=== PATIENT | male | born 1930 | race Caucasian/White ===

== ENCOUNTER 2017-06-08 07:12 | Inpatient (IN) | payer MEDICARE ==
[~2017-06-08] VITALS: Ht 154.9 cm; Wt 58.7 kg
[2017-06-08] VITALS (18 sets, daily range): BP systolic 116–189; BP diastolic 53–84; PULSE 52–66; RESP 16–32; TEMP 97.6–98.5; O2SAT 83–100
--- NOTE | 2017-06-08 07:52 | RADRPT ---
EXAM DATE/TIME: 06/08/2017 07:29 [place] COMPARISON: No previous studies available for comparison. INDICATIONS : Short of Breath MEDICAL HISTORY : Cardiovascular disease. SURGICAL HISTORY : CABG. ENCOUNTER: Initial ACUITY: 1 day PAIN SCORE: 0/10 LOCATION: chest FINDINGS: A single portable frontal view the chest shows elevation of left hemidiaphragm. Left basilar atelecta sis. Right lung is clear. No effusions. Mild cardiomegaly with mild pulmonary vascular engorgement. M edian sternotomy wires noted. CONCLUSION: Elevation left hemidiaphragm with left basilar atelectasis. Cardiomegaly with mild pulmonary vascular engorgement. Trev Beauchamp Jr., MD on June 08, 2017 at 7:49 Board Certified Radiologist. This report was verified electronically.
[2017-06-08] MEDS ORDERED: ATOR40TA16 PO (07:54)
[2017-06-08] MEDS ORDERED: LOSA50TA PO (07:54)
[2017-06-08] MEDS ORDERED: SOTA80TA PO (07:54)
[2017-06-08] MEDS ORDERED: APIX5TAB PO (07:54)
[2017-06-08] MEDS ORDERED: FURO1TAB60 PO (07:54)
[2017-06-08] MEDS ORDERED: ASPI81CH6 CHEW (07:54)
[2017-06-08 07:57] LABS: AUTOMATED NEUTROPHIL # 10.6 TH/MM3 (1.8-7.7); BASOPHIL # 0.3 TH/MM3 (0-0.2); BASOPHIL % 2.1 % (0.0-2.0); EOSINOPHIL # 0.5 TH/MM3 (0-0.4); EOSINOPHIL % 3.6 % (0.0-4.0); HEMATOCRIT 41.5 % (39.0-51.0); HEMOGLOBIN 13.9 GM/DL (13.0-17.0); LYMPH % 8.3 % (9.0-44.0); LYMPHOCYTE # 1.1 TH/MM3 (1.0-4.8); MEAN CELL VOLUME 88.9 FL (80.0-100.0); MEAN CORPUSCULAR HEMOGLOBIN 29.8 PG (27.0-34.0); MEAN CORPUSCULAR HGB CONC 33.5 % (32.0-36.0); MEAN PLATELET VOLUME 8.7 FL (7.0-11.0); MONO % 7.2 % (0.0-8.0); NEUT % 78.8 % (16.0-70.0); PLATELET COUNT 188 TH/MM3 (150-450); RED BLOOD COUNT 4.67 MIL/MM3 (4.50-5.90); WHITE BLOOD COUNT 13.5 TH/MM3 (4.0-11.0)
--- NOTE | 2017-06-08 07:58 | PD ---
HPI Chief Complaint: Respiratory Symptoms Time Seen by Provider: 07:23 Travel History International Travel<30 days: No Contact w/Intl Traveler<30days: No Traveled to known affect area: No History of Present Illness HPI 86-year-old male with history of CAD, CABG, CHF, brought in by his daughter for evaluation of shortness of breath. Shortest breath started at around 3:00 AM and has been progressively worsening, is at rest, worse with exertion. Patient also reports orthopnea. He has had a cough productive of yellowish sputum for the past few days. He is unsure if he has had a fever. No hemoptysis. No history of DVT or PE. He is supposed to be on Lasix, however he takes it as needed for leg swelling. He denies chest pain. His slater apprentice is Dr. Dillard. [facility] Past Medical History Atrial Fibrillation: Yes Cancer: Yes (Colon, penile ) High Cholesterol: Yes Congestive Heart Failure: Yes Hypertension: Yes Myocardial Infarction: Yes Tetanus Vaccination: < 5 Years Influenza Vaccination: Yes Past Surgical History Abdominal Surgery: Yes (Partial colectomy R/T CA) Coronary Artery Bypass Graft: Yes Genitourinary Surgery: Yes (Cancer removed from penis ) Social History Alcohol Use: No Tobacco Use: No Substance Use: No Allergies-Medications (Allergen,Severity, Reaction): Coded Allergies: No Known Allergies (Unverified , 06/08/17) Reported Meds & Prescriptions Reported Meds & Active Scripts Active Reported Atorvastatin (Atorvastatin Calcium) 40 Mg Tab 40 Mg PO HS Eliquis (Apixaban) 5 Mg Tab 5 Mg PO BID Aspirin Low Dose (Aspirin) 81 Mg Chew 81 Mg CHEW DAILY Sotalol (Sotalol HCl) 80 Mg Tab 40 Mg PO BID Lasix (Furosemide) 40 Mg Tab 40 Mg PO DAILY PRN Losartan (Losartan Potassium) 50 Mg Tab 50 Mg PO DAILY Review of Systems Except as stated in HPI: all other systems reviewed are Neg Physical Exam Narrative GENERAL: Well-developed, well-nourished, moderate respiratory distress, speaking a few words at a time, labored breathing, tachypneic SKIN: Focused skin assessment warm/dry. No rash. HEAD: Atraumatic. Normocephalic. EYES: Pupils equal and round. No scleral icterus. No injection or drainage. ENT: No nasal bleeding or discharge. Mucous membranes pink and moist. NECK: Trachea midline. No JVD. CARDIOVASCULAR: Regular rate and rhythm. RESPIRATORY: Labored breathing, tachypnea, moderate respiratory distress, speaking a few words at a time, poor air movement bilaterally with bibasilar rales and slight end expiratory wheezes. GASTROINTESTINAL: Abdomen soft, non-tender, nondistended. MUSCULOSKELETAL: No obvious deformities. No clubbing. No cyanosis. No edema. NEUROLOGICAL: Awake and alert. No obvious cranial nerve deficits. Motor grossly within normal limits. Normal speech. PSYCHIATRIC: Appropriate mood and affect; insight and judgment normal. Data Data Last Documented VS Vital Signs Date Time Temp Pulse Resp B/P (MAP) Pulse Ox O2 Delivery O2 Flow Rate FiO2 06/08/17 08:15 56 22 167/68 (101) 97 BiPAP 30 06/08/17 07:45 2.00 06/08/17 07:45 97.6 Orders Orders Sepsis Workup Initiated (06/08/17 ) Complete Blood Count With Diff (06/08/17 07:23) Comprehensive Metabolic Panel (06/08/17 07:23) Prothrombin Time / Inr (Pt) (06/08/17 07:23) Lactic Acid Sepsis Protocol (06/08/17 07:23) Ckmb (Isoenzyme) Profile (06/08/17 07:23) Troponin I (06/08/17 07:23) Urinalysis - C+S If Indicated (06/08/17 07:23) Influenzae A/B Antigen (06/08/17 07:23) Blood Culture (06/08/17 07:23) Chest, Single Ap (06/08/17 07:23) Ecg Monitoring (06/08/17 07:23) Iv Access Insert/Monitor (06/08/17 07:23) Oximetry (06/08/17 07:23) Oxygen Administration (06/08/17 07:23) B-Type Natriuretic Peptide (06/08/17 07:23) Arterial Blood Gas (Abg) (06/08/17 ) Methylprednisolone So Succ Inj (Solumedr (06/08/17 08:00) Albuterol-Ipratropium Neb (Duoneb Neb) (06/08/17 08:00) Resp Bipap / Cpap Non Invas Vt (06/08/17 07:48) Electrocardiogram (06/08/17 ) Act Partial Throm Time (Ptt) (06/08/17 07:30) Furosemide Inj (Lasix Inj) (06/08/17 08:45) Labs Laboratory Tests Test 06/08/17 07:30 06/08/17 07:38 White Blood Count 13.5 TH/MM3 Red Blood Count 4.67 MIL/MM3 Hemoglobin 13.9 GM/DL Hematocrit 41.5 % Mean Corpuscular Volume 88.9 FL Mean Corpuscular Hemoglobin 29.8 PG Mean Corpuscular Hemoglobin Concent 33.5 % Red Cell Distribution Width 16.0 % Platelet Count 188 TH/MM3 Mean Platelet Volume 8.7 FL Neutrophils (%) (Auto) 78.8 % Lymphocytes (%) (Auto) 8.3 % Monocytes (%) (Auto) 7.2 % Eosinophils (%) (Auto) 3.6 % Basophils (%) (Auto) 2.1 % Neutrophils # (Auto) 10.6 TH/MM3 Lymphocytes # (Auto) 1.1 TH/MM3 Monocytes # (Auto) 1.0 TH/MM3 Eosinophils # (Auto) 0.5 TH/MM3 Basophils # (Auto) 0.3 TH/MM3 CBC Comment DIFF FINAL Differential Comment Prothrombin Time 10.5 SEC Prothromb Time International Ratio 1.0 RATIO Activated Partial Thromboplast Time 30.2 SEC Blood Urea Nitrogen 20 MG/DL Creatinine 1.30 MG/DL Random Glucose 113 MG/DL Total Protein 7.2 GM/DL Albumin 3.2 GM/DL Calcium Level 8.9 MG/DL Alkaline Phosphatase 110 U/L Aspartate Amino Transf (AST/SGOT) 17 U/L Alanine Aminotransferase (ALT/SGPT) 14 U/L Total Bilirubin 0.8 MG/DL Sodium Level 142 MEQ/L Potassium Level 4.3 MEQ/L Chloride Level 107 MEQ/L Carbon Dioxide Level 29.8 MEQ/L Anion Gap 5 MEQ/L Estimat Glomerular Filtration Rate 52 ML/MIN Lactic Acid Level 1.1 mmol/L Total Creatine Kinase 35 U/L Troponin I 0.02 NG/ML B-Type Natriuretic Peptide 1015 PG/ML Blood Gas Puncture Site LT RADIAL Blood Gas Patient Temperature 98.6 Blood Gas HCO3 28 mmol/L Blood Gas Base Excess 2.7 mmol/L Blood Gas Oxygen Saturation 95 % Arterial Blood pH 7.33 Arterial Blood Partial Pressure CO2 55 mmHG Arterial Blood Partial Pressure O2 103 mmHG Arterial Blood Oxygen Content 18.0 Vol % Arterial Blood Carboxyhemoglobin 1.6 % Arterial Blood Methemoglobin 0.9 % Blood Gas Hemoglobin 13.4 G/DL Oxygen Delivery Device NASAL CANNULA Blood Gas Liter Flow 2 L/M MDM Medical Decision Making Medical Screen Exam Complete: Yes Emergency Medical Condition: Yes Interpretation(s) EKG: Sinus, rate 63, indeterminate axis, RBBB, LAFB, no acute ischemic abnormality. Differential Diagnosis Pulmonary edema, CHF, pneumonia, reactive airway disease, pneumothorax, PE Narrative Course Initial vital signs show heart rate 66, blood pressure 189/77, pulse ox 83% on room air, 99% on 2 L nasal cannula, oral temp of 97.6F. ABG on 2 L nasal cannula: PH 7.33, PCO2 55, PO2 103. CBC: WBC 13.5, hemoglobin 13.9, hematocrit 41.5, platelets 188, neutrophils 79%. CMP is essentially unremarkable. Lactic acid is 1.1. BNP is 1050. Troponin is 0.02. Chest x-ray: CONCLUSION: Elevation left hemidiaphragm with left basilar atelectasis. Cardiomegaly with mild pulmonary vascular engorgement. Shortly after arrival to the emergency department, the patient was started on BiPAP and was provided 3 DuoNeb treatments and IV Solu-Medrol. His respiratory status significantly improved on BiPAP. Patient was also given 40 mEq of IV Lasix. While on BiPAP the patient's blood pressure improved to 169/76. He will be admitted for further treatment and evaluation of CHF exacerbation. Case discussed with hospitalist Dr. Khan who will admit the patient to her service to the ICU. Patient was made aware of all findings and plan for admission. Critical Care Narrative Aggregate critical care time was 35 minutes. Time to perform other separately billable procedures was not included in the critical care time. My time did not include minutes spent treating any other patients simultaneously or on activities that did not directly contribute to the patient's treatment. The services I provided to this patient were to treat and/or prevent clinically significant deterioration that could result in: , permanent disability, worsening clinical condition, respiratory failure I provided critical care services requiring my management, as noted below: Chart data review, documentation time, medication orders and management, vital sign assessments/reviewing monitor data, ordering and reviewing lab tests, ordering and interpreting/reviewing x-rays and diagnostic studies, care of the patient and discussion of the patient with the admitting physicians. Diagnosis Primary Impression: CHF exacerbation Qualified Codes: I50.9 - Heart failure, unspecified Additional Impressions: Respiratory distress Hypoxia Admitting Information Admitting Physician Requests: Admit Yasmany Yip MD Jun 08, 2017 07:58
[2017-06-08] MEDS ORDERED: methylPREDNISolone SOD SUCC 125 MG/2 ML VIAL IV PUSH ONE (08:00)
[2017-06-08 08:11] LABS: CHLORIDE 107 MEQ/L (98-107); SODIUM (NA) 142 MEQ/L (136-145)
[2017-06-08] MEDS: RESP: ALBUTEROL 2.5 MG/IPRATROPIUM 0.5 MG NEB (SCH) INH (08:11)
[2017-06-08 08:14] LABS: CALCIUM 8.9 MG/DL (8.5-10.1)
[2017-06-08 08:15] LABS: ALBUMIN 3.2 GM/DL (3.4-5.0); BICARBONATE 29.8 MEQ/L (21.0-32.0); BLOOD UREA NITROGEN 20 MG/DL (7-18); GLUCOSE,RANDOM 113 MG/DL (74-106)
[2017-06-08 08:17] LABS: PROTHROMBIN TIME - PATIENT 10.5 SEC (9.8-11.6)
[2017-06-08 08:18] LABS: ALT (GPT) 14 U/L (12-78); AST (GOT) 17 U/L (15-37); GLOMERULAR FILTRATION RATE 52 ML/MIN (>89)
[2017-06-08 08:19] LABS: TOTAL BILIRUBIN ADULT 0.8 MG/DL (0.2-1.0); TOTAL PROTEIN 7.2 GM/DL (6.4-8.2)
[2017-06-08 08:21] LABS: ALKALINE PHOSPHATASE 110 U/L (45-117)
[2017-06-08 08:23] LABS: TROPONIN I 0.02 NG/ML (0.02-0.05)
[2017-06-08] MEDS ORDERED: FUROSEMIDE 40 MG/4 ML VIAL IV PUSH ONE (08:45)
[2017-06-08] MEDS ORDERED: SODIUM CHLORIDE 0.9% FLUSH 10 ML FLUSH IV FLUSH PRN (09:00)
[2017-06-08] MEDS ORDERED: PILL SPLITTER OTHER PRN (09:15)
[2017-06-08 09:39] LABS: BILIRUBIN, URINE NEG (NEG); BLOOD, URINE NEG (NEG); GLUCOSE,URINE NEG (NEG); KETONE, URINE NEG (NEG); NITRITE,URINE NEG (NEG); URINE LEUKOCYTE ESTERASE NEG (NEG)
[2017-06-08 09:41] LABS: URINE COLOR YELLOW (YELLW/STRAW)
[2017-06-08 09:54] LABS: RBC, URINE 0-3 /hpf (0-3); SQUAMOUS EPITHELIAL CELL URINE 0-5 /hpf (0-5); WBC, URINE 0-2 /hpf (0-5)
[2017-06-08] MEDS: FUROSEMIDE 40 MG/4 ML VIAL IVP SCH ×2 (09:55→17:34)
[2017-06-08] MEDS: ASPIRIN 81 MG CHEW TAB CHEW SCH (09:58)
[2017-06-08] MEDS: APIXABAN 5 MG TABLET PO SCH ×2 (09:58→20:11)
[2017-06-08] MEDS: LOSARTAN 50 MG TAB PO SCH (09:58)
[2017-06-08] MEDS: SOTALOL HCL 80 MG TAB PO SCH ×2 (09:59→20:10)
[2017-06-08] MEDS: SODIUM CHLORIDE 0.9% FLUSH 10 ML FLUSH IV FLUSH SCH ×2 (09:59→20:12)
--- NOTE | 2017-06-08 14:21 | HHI.HP ---
[facility] Service [facility] Primary Care Physician Unknown Admission Diagnosis CHF exacerbation, respiratory distress, hypoxia Diagnoses: Chief Complaint: Respiratory failure Travel History International Travel<30 Days: No Contact w/Intl Traveler <30 Da: No Traveled to Known Affected Are: No History of Present Illness This patient is an 86-year-old gentleman with a history of coronary disease and congestive heart failure who reports increasing shortness of breath over the last 24 hours. It isn't worse with exertion and improved with rest. He has had some productive cough. He was quite hypoxemic on arrival in the emergency room and required BiPAP. On my evaluation patient is still on BiPAP reports he is breathing a bit better. He denies any chest pain or edema. He has not changed any of his medications. He recently saw his home aide with a "clean bill of health ". Patient at this time is recommended to be admitted to the hospital due to acute hypoxemic respiratory failure Review of Systems Constitutional: DENIES: Diaphoretic episodes, Fatigue, Fever, Weight gain, Weight loss, Chills, Dizziness, Change in appetite, Night Sweats Endocrine: DENIES: Heat/cold intolerance, Polydipsia, Polyuria, Polyphagia Eyes: DENIES: Blurred vision, Diplopia, Eye inflammation, Eye pain, Vision loss , Photosensitivity, Double Vision Ears, nose, mouth, throat: DENIES: Tinnitus, Hearing loss, Vertigo, Nasal discharge, Oral lesions, Throat pain, Hoarseness, Ear Pain, Running Nose, Epistaxis, Sinus Pain, Toothache, Odynophagia Respiratory: DENIES: Apneas, Cough, Snoring, Wheezing, Hemoptysis, Sputum production, Shortness of breath Cardiovascular: COMPLAINS OF: Chest pain, Dyspnea on Exertion, DENIES: Palpitations, Syncope, PND, Lower Extremity Edema, Orthopnea, Claudication Gastrointestinal: DENIES: Abdominal pain, Black stools, Bloody stools, Constipation, Diarrhea, Nausea, Vomiting, Difficulty Swallowing, Anorexia Genitourinary: DENIES: Sexual dysfunction, Urinary frequency, Urinary incontinence, Urgency, Hematuria, Dysuria, Nocturia, Penile Discharge, Testicular Pain, Testicular Swelling Musculoskeletal: DENIES: Joint pain, Muscle aches, Stiffness, Joint Swelling, Back pain, Neck pain Integumentary: DENIES: Abnormal pigmentation, Nail changes, Pruritus, Rash Hematologic/lymphatic: DENIES: Bruising, Lymphadenopathy Immunologic/allergic: DENIES: Eczema, Urticaria Psychiatric: DENIES: Anxiety, Confusion, Mood changes, Depression, Hallucinations, Agitation, Suicidal Ideation, Homicidal Ideation, Delusions Except as stated in HPI: all other systems reviewed are Neg Past Family Social History Past Medical History Coronary artery disease Cardiac heart failure Penile cancer Colon cancer Past Surgical History Penile cancer surgery Colon resection Reported Medications Reviewed in the EMR, also takes milk of magnesia and Colace Allergies: Coded Allergies: No Known Allergies (Unverified , 06/08/17) Active Ordered Medications Reviewed in the EMR Family History Father from, patient of diabetes Mother from multiple heart attacks Social History No current tobacco or alcohol dependency, quit tobacco 40 years ago Lives with his daughter and recently relocated from [place] Physical Exam Vital Signs Vital Signs Date Time Temp Pulse Resp B/P (MAP) Pulse Ox O2 Delivery O2 Flow Rate FiO2 06/08/17 13:50 06/08/17 13:30 52 20 175/74 (107) 98 BiPAP 30 06/08/17 12:00 98 BiPAP 30 06/08/17 12:00 20 98 BiPAP 30 06/08/17 11:30 55 22 145/59 (87) 98 BiPAP 30 06/08/17 10:30 58 20 155/56 (89) 98 BiPAP 30 06/08/17 09:00 56 22 171/84 (113) 98 BiPAP 30 06/08/17 09:00 22 BiPAP 30 06/08/17 08:15 56 22 167/68 (101) 97 BiPAP 30 06/08/17 08:15 97 BiPAP 30 06/08/17 08:11 100 35 06/08/17 08:00 100 BiPAP 75 06/08/17 07:45 99 Nasal Cannula 2.00 06/08/17 07:45 32 99 Nasal Cannula 2.00 06/08/17 07:45 99 Nasal Cannula 2.00 06/08/17 07:45 97.6 66 32 189/77 (114) 83 Physical Exam GENERAL: This is a well-nourished, well-developed patient, on bipap HEAD: Atraumatic. Normocephalic. No temporal or scalp tenderness. EYES: Pupils equal round and reactive. Extraocular motions intact. No scleral icterus. No injection or drainage. ENT: Nose without bleeding, purulent drainage or septal hematoma. Throat without erythema, tonsillar hypertrophy or exudate. Uvula midline. Airway patent. NECK: Trachea midline. No JVD or lymphadenopathy. Supple, nontender, no meningeal signs. CARDIOVASCULAR: Regular rate and rhythm without murmurs, gallops, or rubs. RESPIRATORY: bilat decreased air flow No wheezes, rales, or rhonchi. GASTROINTESTINAL: Abdomen soft, non-tender, nondistended. No hepato-splenomegaly , or palpable masses. No guarding. MUSCULOSKELETAL: Extremities without clubbing, cyanosis, or edema. No joint tenderness, effusion, or edema noted. No calf tenderness. Negative Homans sign bilaterally. NEUROLOGICAL: Awake and alert. Cranial nerves II through XII intact. Motor and sensory grossly within normal limits. Five out of 5 muscle strength in all muscle groups. Normal speech. Laboratory Laboratory Tests Test 06/08/17 07:30 06/08/17 07:38 06/08/17 09:26 White Blood Count 13.5 Red Blood Count 4.67 Hemoglobin 13.9 Hematocrit 41.5 Mean Corpuscular Volume 88.9 Mean Corpuscular Hemoglobin 29.8 Mean Corpuscular Hemoglobin Concent 33.5 Red Cell Distribution Width 16.0 Platelet Count 188 Mean Platelet Volume 8.7 Neutrophils (%) (Auto) 78.8 Lymphocytes (%) (Auto) 8.3 Monocytes (%) (Auto) 7.2 Eosinophils (%) (Auto) 3.6 Basophils (%) (Auto) 2.1 Neutrophils # (Auto) 10.6 Lymphocytes # (Auto) 1.1 Monocytes # (Auto) 1.0 Eosinophils # (Auto) 0.5 Basophils # (Auto) 0.3 CBC Comment DIFF FINAL Differential Comment Prothrombin Time 10.5 Prothromb Time International Ratio 1.0 Activated Partial Thromboplast Time 30.2 Blood Urea Nitrogen 20 Creatinine 1.30 Random Glucose 113 Total Protein 7.2 Albumin 3.2 Calcium Level 8.9 Alkaline Phosphatase 110 Aspartate Amino Transf (AST/SGOT) 17 Alanine Aminotransferase (ALT/SGPT) 14 Total Bilirubin 0.8 Sodium Level 142 Potassium Level 4.3 Chloride Level 107 Carbon Dioxide Level 29.8 Anion Gap 5 Estimat Glomerular Filtration Rate 52 Lactic Acid Level 1.1 Total Creatine Kinase 35 Troponin I 0.02 B-Type Natriuretic Peptide 1015 Blood Gas Puncture Site LT RADIAL Blood Gas Patient Temperature 98.6 Blood Gas HCO3 28 Blood Gas Base Excess 2.7 Blood Gas Oxygen Saturation 95 Arterial Blood pH 7.33 Arterial Blood Partial Pressure CO2 55 Arterial Blood Partial Pressure O2 103 Arterial Blood Oxygen Content 18.0 Arterial Blood Carboxyhemoglobin 1.6 Arterial Blood Methemoglobin 0.9 Blood Gas Hemoglobin 13.4 Oxygen Delivery Device NASAL CANNULA Blood Gas Liter Flow 2 Urine Color YELLOW Urine Turbidity CLEAR Urine pH 6.0 Urine Specific [place] 1.010 Urine Protein NEG Urine Glucose (UA) NEG Urine Ketones NEG Urine Occult Blood NEG Urine Nitrite NEG Urine Bilirubin NEG Urine Leukocyte Esterase NEG Urine RBC 0-3 Urine WBC 0-2 Urine Squamous Epithelial Cells 0-5 Urine Bacteria NONE Microscopic Urinalysis Comment CULT NOT INDICATED Date/Time Source Procedure Growth Status 06/08/17 07:35 Blood Peripheral Aerobic Blood Culture Pending Received 06/08/17 07:35 Blood Peripheral Anaerobic Blood Culture Pending Received 06/08/17 07:40 Nasal Washing Influenza Types A,B Antigen (BONNIE) - Final NEGATIVE FOR FLU A AND B ANTIGEN.... Complete Result Diagram: 06/08/1772906/08/17729 Imaging Last Impressions Chest X-Ray 06/08/17722 Signed Impressions: Service Date/Time: Thursday, June 08, 2017 07:29 - CONCLUSION: Elevation left hemidiaphragm with left basilar atelectasis. Cardiomegaly with mild pulmonary vascular engorgement. Trev Beauchamp Jr., MD Septic Shock Reassessment Septic shock perfusion: reassessment completed Caprini VTE Risk Assessment Caprini VTE Risk Assessment: Mod/High Risk (score >= 2) Caprini Risk Assessment Model Point Value = 1 Point Value = 2 Point Value = 3 Point Value = 5 Age 41-60 Minor surgery BMI > 25 kg/m2 Swollen legs Varicose veins or History of unexplained or recurrent spontaneous Oral contraceptives or hormone replacement Sepsis (< 1 month) Serious lung disease, including pneumonia (< 1 month) Abnormal pulmonary function Acute myocardial infarction Congestive heart failure (< 1 month) History of inflammatory bowel disease Medical patient at bed rest Age 61-74 Arthroscopic surgery Major open surgery (> 45 min) Laparoscopic surgery (> 45 min) Malignancy Confined to bed (> 72 hours) Immobilizing plaster cast Central venous access Age >= 75 History of VTE Family history of VTE Factor V Leiden Prothrombin [id number] Lupus anticoagulant Anticardiolipin antibodies Elevated serum homocysteine Heparin-induced thrombocytopenia Other congenital or acquired thrombophilia Stroke (< 1 month) Elective arthroplasty Hip, pelvis, or leg fracture Acute spinal cord injury (< 1 month) Prophylaxis Regimen Total Risk Factor Score Risk Level Prophylaxis Regimen 0-1 Low Early ambulation 2 Moderate Order ONE of the following: *Sequential Compression Device (SCD) *Heparin 5000 units SQ BID 3-4 Higher Order ONE of the following medications: *Heparin 5000 units SQ TID *Enoxaparin/Lovenox 40 mg SQ daily (WT < 150 kg, CrCl > 30 mL/min) *Enoxaparin/Lovenox 30 mg SQ daily (WT < 150 kg, CrCl > 10-29 mL/min) *Enoxaparin/Lovenox 30 mg SQ BID (WT < 150 kg, CrCl > 30 mL/min) AND/OR *Sequential Compression Device (SCD) 5 or more Highest Order ONE of the following medications: *Heparin 5000 units SQ TID (Preferred with Epidurals) *Enoxaparin/Lovenox 40 mg SQ daily (WT < 150 kg, CrCl > 30 mL/min) *Enoxaparin/Lovenox 30 mg SQ daily (WT < 150 kg, CrCl > 10-29 mL/min) *Enoxaparin/Lovenox 30 mg SQ BID (WT < 150 kg, CrCl > 30 mL/min) AND *Sequential Compression Device (SCD) Assessment and Plan Problem List: (1) CHF exacerbation ICD Code: I50.9 - Heart failure, unspecified Status: Acute Plan: Continue home medications including sotalol, losartan, lupus and atorvastatin Cardiology consult Continue with telemetry (2) Hypoxia ICD Code: R09.02 - Hypoxemia Status: Acute Plan: Patient with acute hypoxemic respiratory failure secondary to congestive heart failure exacerbation Continue with Lasix for diuresis Follow accurate ins and outs Continue patient's home losartan and Eliquis Continue BiPAP as needed and oxygen as needed Patient admitted to the ICU Code Status full code Discussed Condition With patients, er md Physician Certification 2 Midnight Certification Type: Admission for Inpatient Services Order for Inpatient Services The services are ordered in accordance with Medicare regulations or non- Medicare payer requirements, as applicable. In the case of services not specified as inpatient-only, they are appropriately provided as inpatient services in accordance with the 2-midnight benchmark. Estimated LOS (days): 3 3 days is the estimated time the patient will need to remain in the hospital, assuming treatment plan goals are met and no additional complications. Post-Hospital Plan: Home Problem Qualifiers (1) CHF exacerbation: Qualified Codes: I50.9 - Heart failure, unspecified Samia Khan MD Jun 08, 2017 14:21
[2017-06-08] MEDS ORDERED: LACTULOSE SYRUP 20 GM/30 ML CUP PO ONE (14:30)
[2017-06-08] MEDS ORDERED: RESP: ALBUTEROL 2.5 MG/IPRATROPIUM 0.5 MG NEB (PRN) NEB (14:30)
[2017-06-08] MEDS ORDERED: BISACODYL EC 5 MG TABEC PO ONE (14:30)
[2017-06-08] MEDS: ATORVASTATIN 40 MG TAB PO SCH (20:12)
--- NOTE | 2017-06-08 22:53 | EKG ---
Date Performed: 06/08/2017 Time Performed: 07:21:50 PTAGE: 86 years EKG: Sinus rhythm INDETERMINATE AXIS RIGHT BUNDLE BRANCH BLOCK AND POSSIBLE RIGHT VENTRICULAR HYPERTROPHY LEFT POSTERI OR FASCICULAR BLOCK ANTEROSEPTAL MYOCARDIAL INFARCTION ABNORMAL ECG INTERPRETATION BASED ON A DEFAULT AGE OF 40 YEARS NO PREVIOUS TRACING DOCTOR: Kellie Galicia Interpretating Date/Time 06/08/2017 22:48:42
[2017-06-09] VITALS (17 sets, daily range): BP systolic 108–178; BP diastolic 50–84; PULSE 52–75; RESP 12–26; TEMP 96.5–98.2; O2SAT 95–100
[2017-06-09 05:14] LABS: BICARBONATE 32.4 MEQ/L (21.0-32.0); CALCIUM 8.8 MG/DL (8.5-10.1)
[2017-06-09 05:18] LABS: CREATININE 1.3 MG/DL (0.60-1.30)
[2017-06-09] MEDS: LOSARTAN 50 MG TAB PO SCH (08:56)
[2017-06-09] MEDS: SOTALOL HCL 80 MG TAB PO SCH ×2 (08:56→21:26)
[2017-06-09] MEDS: ASPIRIN 81 MG CHEW TAB CHEW SCH (08:56)
[2017-06-09] MEDS: APIXABAN 5 MG TABLET PO SCH ×2 (08:56→21:26)
[2017-06-09] MEDS: SODIUM CHLORIDE 0.9% FLUSH 10 ML FLUSH IV FLUSH SCH ×2 (08:57→21:26)
[2017-06-09] MEDS: FUROSEMIDE 40 MG/4 ML VIAL IVP SCH ×2 (08:57→17:07)
[2017-06-09] MEDS ORDERED: INFLUENZA VIRUS VACCINE (QUADRIVALENT) 0.5 ML SYR IM ONE (09:00)
--- NOTE | 2017-06-09 09:16 | MB ---
cc: VICK REID DO DATE OF CONSULTATION 06/09/2017 REASON FOR CONSULTATION Shortness of breath. HISTORY OF PRESENT ILLNESS Fidel Monzon is an 86-year-old male who sees my partner Dr. Dillard in the office and presented to [facility] emergency room due to shortness of breath over the past 24 hours. He states that he was getting more short of breath with exertion which improved with rest. He has had somewhat of a productive cough bringing up mild feliz sputum. On arrival to the emergency room, he was hypoxic with a pulse ox of 83 and then was placed on BiPap and did well. He was also noted to have a blood pressure of 189/77. He has since been taken off BiPap and placed on 2 liters nasal cannula and doing well lying flat in the bed. Throughout the episodes, he denies any chest pain. He is somewhat unsure of his previous medical history. PAST MEDICAL HISTORY 1. Coronary artery disease with a history of GA. 2. Heart failure of unknown type. 3. Penile cancer 4. Colon cancer 5. Paroxysmal atrial fibrillation PAST SURGICAL HISTORY 1. Stent placed around two years ago and an unknown coronary artery while in [place] 2. History of CABG times unknown amount. 3. Penile cancer surgery 4. Colon resection ALLERGIES NO KNOWN DRUG ALLERGIES. MEDICATIONS 1. Eliquis 5 mg b.i.d. 2. Lipitor 40 mg every night 3. Sotalol a 40 mg b.i.d. 4. Losartan 50 mg daily 5. Aspirin 81 mg daily 6. Lasix 40 mg daily as needed for shortness of breath. FAMILY HISTORY Father from diabetes. Mother from multiple heart attacks. SOCIAL HISTORY Denies tobacco, alcohol or drug abuse. He quit tobacco around 40 years ago. He now lives with his daughter and recently relocated from [place]. REVIEW OF SYSTEMS 14-systems were reviewed including osteopathic pertinent positives and negatives as above, otherwise negative. PHYSICAL EXAMINATION VITAL SIGNS: Temperature 98.0, heart rate 62, blood pressure 113/50, respirations 16, pulse ox 95% on two liters. GENERAL: In general, the patient appears well in no acute distress, alert, awake and oriented x3. HEAD, EYES, EARS, NOSE, AND THROAT: Extraocular muscles intact. Mucous membranes moist. NECK: Supple. No JVD at 45 degrees. No carotid bruits heard bilaterally. Carotid upstroke is brisk in nature. HEART: Regular rate and rhythm. Positive first and second heart sounds with a 1/6 crescendo-decrescendo murmur to the right sternal border. LUNGS: Decreased breath sounds bilaterally, but no overt wheezes, rales or rhonchi. ABDOMEN: Soft, nontender, nondistended. No organomegaly noted. EXTREMITIES: Show no clubbing, cyanosis or edema. Femoral and distal pulses intact bilaterally. NEUROLOGIC: No focal deficits. SKIN: Warm, dry and intact. OSTEOPATHIC: No kyphoscoliosis, lordosis or paraspinal tender points. LABORATORY FINDINGS Hemoglobin 13.9, hematocrit 41.5, platelets 188. ABG pH 7.33/pCO2 55/O2 95/HCO3 28. Potassium 3.5, BUN 30, creatinine 1.3, troponin 0.02. BNP 1015. Electrocardiogram (June 08, 2017 at 0721) sinus rhythm, right bundle branch block with possible RVH, left posterior fascicular block, possible old anteroseptal myocardial infarction. IMPRESSIONS 1. Hypoxia most likely due to multiple factors. 2. Acute congestive heart failure exacerbation of unknown type. 3. Accelerated hypertension. 4. Possible COPD exacerbation. 5. Paroxysmal atrial fibrillation 6. History of coronary artery disease as above. RECOMMENDATIONS 1. Mr. Monzon presented with shortness of breath which may be due to his accelerated hypertension, although his ABG points to CO2 retention and not really significant hypoxia on 2 liters of oxygen. 2. His blood pressure is better controlled at this time. We will continue his current medications. 3. He has been diuresed well and appears mostly compensated. 4. We will check a 2-D echo to look at his overall left ventricular function, cardiac structure and possible valvopathies. 5. As far as his atrial fibrillation goes, his heart rate appears controlled. If his ejection fraction is noted to be low on echocardiogram, we may need to stop his sotalol and change him to other beta blockade. He will continue on Eliquis for anticoagulation for his atrial fibrillation. 6. Upon discharge, he can follow up with Dr. Dillard in the office. Thank you for allowing me to see Fidel Monzon. If there are any questions, please do not hesitate to call. Vick Reid DO VGP/DJL /8:20 AM /9:00 AM
[2017-06-09] MEDS ORDERED: POTASSIUM CHLORIDE 10 MEQ CONTROLLED RELEASE TAB PO ONE ×2 (13:00→13:45)
--- NOTE | 2017-06-09 13:37 | HHI.PR ---
Subjective Remarks patient seen and evaluated today in follow-up for COPD exacerbation and for constipation. Constipation is dramatically improved. Patient's breathing is dramatically improved as well. In fact he is on 2 L nasal cannula. Cardiology evaluation appreciated. Objective Vitals Vital Signs Date Time Temp Pulse Resp B/P (MAP) Pulse Ox O2 Delivery O2 Flow Rate FiO2 06/09/17 10:00 58 22 155/68 (97) 100 06/09/17 10:00 58 06/09/17 09:15 98 Nasal Cannula 2.00 06/09/17 09:00 64 26 161/74 (103) 97 06/09/17 08:00 68 06/09/17 08:00 89 Nasal Cannula 2.00 06/09/17 08:00 98.0 75 22 178/84 (115) 98 06/09/17 07:00 66 16 152/71 (98) 96 06/09/17 06:00 65 06/09/17 04:16 98.0 62 16 113/50 (71) 95 06/09/17 04:00 66 06/09/17 03:00 62 16 125/58 (80) 95 06/09/17 02:00 58 06/09/17 02:00 58 19 134/59 (84) 95 06/09/17 01:00 58 18 144/60 (88) 95 06/09/17 00:00 62 06/09/17 00:00 97.7 62 16 125/55 (78) 95 06/08/17 23:00 54 16 126/55 (78) 95 06/08/17 22:00 62 18 118/58 (78) 95 06/08/17 22:00 65 06/08/17 21:00 54 20 127/55 (79) 95 06/08/17 20:00 60 06/08/17 20:00 98.5 60 30 136/60 (85) 95 06/08/17 19:20 96 Nasal Cannula 2.00 06/08/17 19:00 62 19 116/53 (74) 95 06/08/17 18:00 62 06/08/17 17:00 52 19 146/67 (93) 93 06/08/17 16:00 52 06/08/17 16:00 97.9 52 20 143/61 (88) 95 06/08/17 15:00 54 20 152/82 (105) 96 06/08/17 14:10 64 06/08/17 14:10 97.6 64 20 167/81 (109) 97 06/08/17 13:50 I/O 06/08/17 06/08/17 06/08/17 06/09/17 06/09/17 06/09/17 07:00 15:00 23:00 07:00 15:00 23:00 Intake Total 600 ml 120 ml Output Total 600 ml 425 ml Balance -600 ml 175 ml 120 ml Intake Oral 600 ml 120 ml Output Urine Total 600 ml 425 ml # Voids 2 # Bowel Movements 2 3 2 Result Diagram: 06/08/17 0730 06/09/17 0423 Imaging Last Impressions Chest X-Ray 06/08/17722 Signed Impressions: Service Date/Time: Thursday, June 08, 2017 07:29 - CONCLUSION: Elevation left hemidiaphragm with left basilar atelectasis. Cardiomegaly with mild pulmonary vascular engorgement. Trev Beauchamp Jr., MD Objective Remarks GENERAL: This is a well-nourished, well-developed patient, in no apparent distress. CARDIOVASCULAR: Regular rate and rhythm without murmurs, gallops, or rubs. RESPIRATORY: Clear to auscultation. Breath sounds equal bilaterally. No wheezes , rales, or rhonchi. GASTROINTESTINAL: Abdomen soft, non-tender, nondistended. Normal active bowel sounds MUSCULOSKELETAL: Extremities without clubbing, cyanosis, or edema. NEURO: Alert & Oriented x4 to person, place, time, situation. Moves all ext x4 A/P Problem List: (1) CHF exacerbation ICD Code: I50.9 - Heart failure, unspecified Status: Acute Plan: Continue home medications including sotalol, losartan, Eliquis and atorvastatin Cardiology consult is appreciated Continue with telemetry Original chest x-ray on my review is consistent with cardio pulmonary edema (2) Hypoxia ICD Code: R09.02 - Hypoxemia Status: Acute Plan: Patient with acute hypoxemic respiratory failure secondary to congestive heart failure exacerbation Continue with Lasix for diuresis Follow accurate ins and outs Continue patient's home losartan and Eliquis Continue with oxygen by nasal cannula as needed Increase activity I am concerned about possible obstructive pathology underlying this CHF exacerbation. Patient's original CO2 on his blood gas was a bit elevated and will need to recheck this. He still somewhat hypoxemic although he appears to have diuresed quite adequately (1025 ml) Discharge Planning [facility] Problem Qualifiers (1) CHF exacerbation: Qualified Codes: I50.9 - Heart failure, unspecified Samia Khan MD Jun 09, 2017 13:37
[2017-06-09] MEDS: predniSONE 20 MG TAB PO SCH (17:07)
[2017-06-09] MEDS: RESP: ALBUTEROL 2.5 MG/IPRATROPIUM 0.5 MG NEB (SCH) NEB (19:24)
--- NOTE | 2017-06-09 20:14 | ECHRPT ---
Indication: chf CONCLUSIONS The left ventricular systolic function is severely reduced with an estimated ejection fraction in th e range of 30-35%. Global hypokinesis with apical akinesis. Riddle is not well visualized, can not rule out possible thrombus, although felt to be artifact. Doppler parameters are consistent with impaired left ventricular relaxtion (grade 1 diastolic dysfun ction). [id number] mitral valve regurgitation. There is mild tricuspid valve regurgitation. BP: / HR: Rhythm: MEASUREMENTS (Male / Female) Normal Values Technical Quality:Technically difficult study 2D ECHO LV Diastolic Diameter PLAX 4.7 cm 4.2 - 5.9 / 3.9 - 5.3 cm LV Systolic Diameter PLAX 4.1 cm IVS Diastolic Thickness 0.8 cm 0.6 - 1.0 / 0.6 - 0.9 cm LVPW Diastolic Thickness 0.9 cm 0.6 - 1.0 / 0.6 - 0.9 cm LV Relative Wall Thickness 0.4 RV Internal Dim ED PLAX 2.5 cm M-MODE Aortic Root Diameter MM 3.7 cm LA Systolic Diameter MM 4.0 cm LA Ao Ratio MM 1.1 DOPPLER Mitral E Point Velocity 57.3 cm/s Mitral A Point Velocity 79.0 cm/s Mitral E to A Ratio 0.7 LV E' Lateral Velocity 4.8 cm/s Mitral E to LV E' Lateral Ratio 12.0 LV E' Septal Velocity 5.6 cm/s Mitral E to LV E' Septal Ratio 10.3 TR Peak Velocity 200.0 cm/s TR Peak Gradient 16.0 mmHg Right Atrial Pressure 10.0 mmHg Pulmonary Artery Systolic Pressu 26.0 mmHg Right Ventricular Systolic Press 26.0 mmHg FINDINGS LEFT VENTRICLE Normal left ventricular size. The left ventricular systolic function is severely reduced with an estimated ejection fraction in th e range of 30-35%. Global hypokinesis with apical akinesis. Riddle is not well visualized, can not rule out possible thrombus, although felt to be artifact. Cons ider echo with contrast. Doppler parameters are consistent with impaired left ventricular relaxtion (grade 1 diastolic dysfun ction). RIGHT VENTRICLE Normal right ventricular size The right ventricular systoilc function is mildly decreased. LEFT ATRIUM The left atrial size is normal. RIGHT ATRIUM The right atrial size is normal. ATRIAL SEPTUM Normal atrial septal thickness AORTA The aortic root and proximal ascending aorta are normal in size on limited imaging. MITRAL VALVE Structurally normal mitral valve. [id number] mitral valve regurgitation. No mitral valve stenosis. AORTIC VALVE Trileaflet aortic valve. No aortic valve stenosis or regurgitation. TRICUSPID VALVE Structurally normal tricuspid valve. There is mild tricuspid valve regurgitation. The estimated pulmonary arterial pressure is 26 mmHg. PULMONARY VALVE No pulmonary valve regurgitation or stenosis. VESSELS The inferior vena cava is normal in size. PERICARDIUM No pericardial effusion. Vick Escobar DO (Electronically Signed) Final Date:09 June 2017 20:13
[2017-06-09] MEDS: ATORVASTATIN 40 MG TAB PO SCH (21:26)
[2017-06-10] VITALS: BP 120/67; PULSE 50; RESP 20; TEMP 96.7; O2SAT 99
--- NOTE | 2017-06-10 07:40 | PD.CARD.PN ---
Subjective Subjective Remarks Pt reports breathing a little better Objective Medications Current Medications Medications (Trade) Dose Ordered Sig/Phan Route Start Time Stop Time Status Last Admin (NS Flush) 2 ml BID IV FLUSH 06/08/17 09:00 06/09/17 21:26 (NS Flush) 2 ml UNSCH PRN IV FLUSH 06/08/17 09:00 06/09/17 17:07 (Lasix Inj) 40 mg BID@,18 IVP 06/08/17 10:00 06/09/17 17:07 (Eliquis) 5 mg BID PO 06/08/17 10:00 06/09/17 21:26 (Aspirin Chew) 81 mg DAILY CHEW 06/08/17 10:00 06/09/17 08:56 (Lipitor) 40 mg HS PO 06/08/17 21:00 06/09/17 21:26 (Cozaar) 50 mg DAILY PO 06/08/17 10:00 06/09/17 08:56 (Betapace) 40 mg BID PO 06/08/17 10:00 06/09/17 21:26 (Pill Splitter) 1 ea UNSCH PRN OTHER 06/08/17 09:15 06/09/17 08:59 (Duoneb Neb) 1 ampule Q2HR NEB PRN NEB 06/08/17 14:30 (Duoneb Neb) 1 ampule Q6HR WHILE AWAKE NEB NEB 06/09/17 20:00 06/09/17 19:24 (Deltasone) 20 mg DAILY PO 06/09/17 16:00 06/09/17 17:07 Vital Signs / I&O Vital Signs Date Time Temp Pulse Resp B/P (MAP) Pulse Ox O2 Delivery O2 Flow Rate FiO2 06/10/17 00:00 96.7 50 20 120/67 (84) 99 06/09/17 20:00 96.5 57 20 140/63 (88) 97 06/09/17 20:00 97 Nasal Cannula 2.00 28 06/09/17 19:26 99 Nasal Cannula 2.00 06/09/17 16:00 98.2 57 18 108/55 (72) 96 06/09/17 12:00 56 06/09/17 12:00 56 22 151/72 (98) 100 06/09/17 11:00 52 12 147/63 (91) 97 2/20/18 10:00 58 22 155/68 (97) 100 06/09/17 10:00 58 06/09/17 09:15 98 Nasal Cannula 2.00 06/09/17 09:00 64 26 161/74 (103) 97 06/09/17 08:00 68 06/09/17 08:00 89 Nasal Cannula 2.00 06/09/17 08:00 98.0 75 22 178/84 (115) 98 I/O 06/09/17 06/09/17 06/09/17 06/10/17 06/10/17 06/10/17 07:00 15:00 23:00 07:00 15:00 23:00 Intake Total 120 ml 1200 ml 60 ml Balance 120 ml 1200 ml 60 ml Intake Oral 120 ml 1200 ml 60 ml # Voids 2 8 1 # Bowel Movements 3 2 8 Physical Exam GENERAL: Well developed, well nourished. No acute distress. HEENT: Jugular venous pressure is normal. CHEST: Lungs decreased and with rales to auscultation bilaterally. Unlabored respiratory effort. CARDIAC: Regular rate and rhythm without S3, S4, or murmur. ABDOMEN: Soft, nontender, no hepatosplenomegaly. Bowel sounds present. EXTREMITIES: No clubbing, cyanosis, or edema. Laboratory Laboratory Tests Test 06/09/17 13:57 06/09/17 17:30 Blood Gas Puncture Site RT RADIAL Blood Gas Patient Temperature 37.0 Blood Gas HCO3 33 mmol/L Blood Gas Base Excess 7.8 mmol/L Blood Gas Oxygen Saturation 91 % Arterial Blood pH 7.41 Arterial Blood Partial Pressure CO2 53 mmHg Arterial Blood Partial Pressure O2 68 mmHg Arterial Blood Oxygen Content 16.5 Vol % Arterial Blood Carboxyhemoglobin 1.3 % Arterial Blood Methemoglobin 1.0 % Blood Gas Hemoglobin 12.9 G/DL Oxygen Delivery Device ROOM AIR Blood Gas Inspired Oxygen 21 % Stool C. difficile Toxin (PCR) NEGATIVE Stl C. difficile Toxin Epiderm 027 PRESUMPTIVE NEGATIVE Imaging Last 72 hours Impressions Chest X-Ray 06/08/17 0727 Signed Impressions: Service Date/Time: Thursday, June 08, 2017 07:29 - CONCLUSION: Elevation left hemidiaphragm with left basilar atelectasis. Cardiomegaly with mild pulmonary vascular engorgement. Trev Beauchamp Jr., MD Assessment and Plan Assessment and Plan acute on chronic systolic failure- EF 30-35%, was 45% still with rales=> continue IV lasix fluid and sodium restrictions CAD- consider nuc when stable given the decreased EF hypoxia- disproportionate to CHF, consider COPD Perri Bethea MD Jun 10, 2017 07:40
[2017-06-10 07:58] LABS: CALCIUM 9.2 MG/DL (8.5-10.1)
[2017-06-10 07:59] LABS: BICARBONATE 32.7 MEQ/L (21.0-32.0)
[2017-06-10 08:02] LABS: CREATININE 1.2 MG/DL (0.60-1.30)
[2017-06-10 08:16] VITALS: BP 162/65; PULSE 51; RESP 18; TEMP 97.2; O2SAT 96
[2017-06-10] MEDS: FUROSEMIDE 40 MG/4 ML VIAL IVP SCH (08:24)
[2017-06-10] MEDS: APIXABAN 5 MG TABLET PO SCH (08:24)
[2017-06-10] MEDS: SODIUM CHLORIDE 0.9% FLUSH 10 ML FLUSH IV FLUSH SCH (08:24)
[2017-06-10] MEDS: ASPIRIN 81 MG CHEW TAB CHEW SCH (08:24)
[2017-06-10] MEDS: LOSARTAN 50 MG TAB PO SCH (08:24)
[2017-06-10] MEDS: predniSONE 20 MG TAB PO SCH (08:24)
[2017-06-10] MEDS: RESP: ALBUTEROL 2.5 MG/IPRATROPIUM 0.5 MG NEB (SCH) NEB (08:38)
[2017-06-10 08:43] VITALS: O2SAT 98
[2017-06-10] MEDS: SOTALOL HCL 80 MG TAB PO SCH (08:46)
[2017-06-10 11:50] VITALS: BP 173/74; PULSE 56; RESP 20; TEMP 97.1; O2SAT 93
[2017-06-10] MEDS ORDERED: Albuterol-Ipratropium Neb NEB (12:04)
[2017-06-10] MEDS ORDERED: PRED5PAK PO (12:04)
[2017-06-10] MEDS ORDERED: NEBULIZER1 MI1 (12:04)
--- NOTE | 2017-06-10 12:05 | HHI.DCPOC ---
Discharge Care Plan Diagnosis: (1) Hypoxia (2) CHF exacerbation (3) Respiratory distress Goals to Promote Your Health * To prevent worsening of your condition and complications * To maintain your health at the optimal level Directions to Meet Your Goals Take your medications as prescribed Follow your dietary instruction Follow activity as directed Keep your appointments as scheduled Take your immunizations and boosters as scheduled If your symptoms worsen call your PCP, if no PCP go to Urgent Care Center or Emergency Room Smoking is Dangerous to Your Health. Avoid second hand smoke Call the 24-hour hour crisis hotline for domestic abuse at Samia Khan MD Jun 10, 2017 12:05
[2017-06-10] MEDS ORDERED: CELE100C PO (12:08)
--- NOTE | 2017-06-10 12:10 | HHI.DS ---
Discharge Summary Admission Date Jun 08, 2017 at 08:56 Discharge Date: Jun 10, 2017 Admitting Diagnosis CHF exacerbation, respiratory distress, hypoxia (1) CHF exacerbation ICD Code: I50.9 - Heart failure, unspecified Status: Acute (2) Hypoxia ICD Code: R09.02 - Hypoxemia Status: Acute (3) Acute hypoxemic respiratory failure ICD Code: J96.01 - Acute respiratory failure with hypoxia Procedures BIPAP Brief History - From Admission This patient is an 86-year-old gentleman with a history of coronary disease and congestive heart failure who reports increasing shortness of breath over the last 24 hours. It isn't worse with exertion and improved with rest. He has had some productive cough. He was quite hypoxemic on arrival in the emergency room and required BiPAP. On my evaluation patient is still on BiPAP reports he is breathing a bit better. He denies any chest pain or edema. He has not changed any of his medications. 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 Patient at this time is recommended to be admitted to the hospital due to acute hypoxemic respiratory failure CBC/BMP: 06/08/17 0730 06/10/17 0718 Significant Findings Laboratory Tests Test 06/08/17 07:30 06/08/17 07:38 06/08/17 09:26 06/08/17 16:25 White Blood Count 13.5 TH/MM3 (4.0-11.0) Neutrophils (%) (Auto) 78.8 % (16.0-70.0) Lymphocytes (%) (Auto) 8.3 % (9.0-44.0) Basophils (%) (Auto) 2.1 % (0.0-2.0) Neutrophils # (Auto) 10.6 TH/MM3 (1.8-7.7) Monocytes # (Auto) 1.0 TH/MM3 (0-0.9) Eosinophils # (Auto) 0.5 TH/MM3 (0-0.4) Basophils # (Auto) 0.3 TH/MM3 (0-0.2) Activated Partial Thromboplast Time 30.2 SEC (24.3-30.1) Blood Urea Nitrogen 20 MG/DL (7-18) Random Glucose 113 MG/DL (74-106) Albumin 3.2 GM/DL (3.4-5.0) Estimat Glomerular Filtration Rate 52 ML/MIN (>89) Total Creatine Kinase 35 U/L (39-308) B-Type Natriuretic Peptide 1015 PG/ML (0-100) Blood Gas HCO3 28 mmol/L (22-26) Blood Gas Base Excess 2.7 mmol/L (-2-2) Arterial Blood pH 7.33 (7.380-7.420) Arterial Blood Partial Pressure CO2 55 mmHG (38-42) Test 06/09/17 04:23 06/09/17 13:57 06/09/17 17:30 06/10/17 07:18 Blood Urea Nitrogen 30 MG/DL (7-18) 34 MG/DL (7-18) Random Glucose 132 MG/DL (74-106) 113 MG/DL (74-106) Carbon Dioxide Level 32.4 MEQ/L (21.0-32.0) 32.7 MEQ/L (21.0-32.0) Estimat Glomerular Filtration Rate 52 ML/MIN (>89) 57 ML/MIN (>89) Blood Gas HCO3 33 mmol/L (22-26) Blood Gas Base Excess 7.8 mmol/L (-2-2) Arterial Blood Partial Pressure CO2 53 mmHg (38-42) Imaging Last Impressions Chest X-Ray 06/08/17 0772 Signed Impressions: Service Date/Time: Thursday, June 08, 2017 07:29 - CONCLUSION: Elevation left hemidiaphragm with left basilar atelectasis. Cardiomegaly with mild pulmonary vascular engorgement. Trev Beauchamp Jr., MD PE at Discharge GENERAL: This is a well-nourished, well-developed patient, in no apparent distress. CARDIOVASCULAR: Regular rate and rhythm without murmurs, gallops, or rubs. RESPIRATORY: Clear to auscultation. Breath sounds equal bilaterally. No wheezes , rales, or rhonchi. GASTROINTESTINAL: Abdomen soft, non-tender, nondistended. Normal active bowel sounds MUSCULOSKELETAL: Extremities without clubbing, cyanosis, or edema. NEURO: Alert & Oriented x4 to person, place, time, situation. Moves all ext x4 Pt update on day of discharge Doing quite a bit better today seen in follow up for CHF exacerbation and Hypoxemic resp failure, with minimal CO2 retention DC plans discussed with patient Hospital Course Patient is seen and treated for Hypoxemic resp failure likely from CHF exacerbation, he did well with diuresis and in the the icu on bipap. He may have some underlying COPD although he is not diagnosed ECHO did show some reduction in EF and outpatient ST is recommended by cardiology who saw the patient in consultation Pt Condition on Discharge: Good Discharge Disposition: Discharge Home Discharge Time: > 30 minutes Discharge Instructions DIET: Follow Instructions for: Heart Healthy Diet Activities you can perform: Regular-No Restrictions Follow up Referrals: Cardiology - 1 Week @ [facility] Pulmonology - 1 Month New Medications: Nebulizer (Nebulizer) 1 Mis Mis EA .XX DIRECTED for Breathing Treatment, #1 0 Refills Prednisone (21) 5 mg tab Dose Pack (Prednisone (21) 5 mg tab Dose Pack) 5 Mg Dspk 5 MG PO DIRECTED for Inflammation, #1 DSPK 0 Refills [Albuterol-Ipratropium Neb] () 1 AMPULE NEBU 1 AMPULE NEB Q2HR NEB PRN for dyspnea, #90 Continued Medications: Apixaban (Eliquis) 5 Mg Tab 5 MG PO BID for Blood Clot Prevention, #60 TAB 0 Refills Aspirin (Aspirin Low Dose) 81 Mg Chew 81 MG CHEW DAILY, TAB 0 Refills Atorvastatin (Atorvastatin) 40 Mg Tab 40 MG PO HS for Cholesterol Management, #30 TAB 0 Refills Furosemide (Lasix) 40 Mg Tab 40 MG PO DAILY PRN for SHORTNESS OF BREATH, #30 TAB 0 Refills Losartan (Losartan) 50 Mg Tab 50 MG PO DAILY for Blood Pressure Management, #30 TAB 0 Refills Sotalol (Sotalol) 80 Mg Tab 40 MG PO BID for Regulate Heart Beat, #60 TAB 0 Refills Samia Khan MD Jun 10, 2017 12:10
[2017-06-10] MEDS ORDERED: NAPROXEN 500 MG TAB PO ONE (12:45)
== END 2017-06-10 14:44 | disposition home or self-care (01) | DRG 291 ==
LOC: PHED 07:12 → PHEDA 08:56 → PHICU 13:45 → PH3A 06-09 18:22
PROVIDERS: ADMIT Hospitalist; ATTEND Hospitalist
PROC: 5A09357 Assistance with Respiratory Ventilation, Less than 24 Consecutive Hours, Continuous Positive Airway Pressure (ICD-10-PCS; principal; 2017-06-08)
DX: I11.0 Hypertensive heart disease with heart failure (principal); J96.01 Acute respiratory failure with hypoxia; J44.1 Chronic obstructive pulmonary disease with (acute) exacerbation; I45.2 Bifascicular block; I25.10 Atherosclerotic heart disease of native coronary artery without angina pectoris; I48.0 Paroxysmal atrial fibrillation; I50.23 Acute on chronic systolic (congestive) heart failure; K59.00 Constipation, unspecified; I25.2 Old myocardial infarction; I50.9 Heart failure, unspecified; Z95.1 Presence of aortocoronary bypass graft; Z79.01 Long term (current) use of anticoagulants; Z82.49 Family history of ischemic heart disease and other diseases of the circulatory system; Z85.038 Personal history of other malignant neoplasm of large intestine; Z85.49 Personal history of malignant neoplasm of other male genital organs; Z87.891 Personal history of nicotine dependence; Z23 Encounter for immunization
CPT/HCPCS: 36600; 71045; 80048; 80053; 81001; 82550; 82805; 83605; 83880; 84484; 85025; 85610; 85730; 87040; 87493; 87641; 87804; 90471; 90686; 93005; 93306; 94002; 94618; 94640; 94664; 96374; G0008; J1940; J2930; J7512; Q2038

== ENCOUNTER 2018-03-20 14:54 | Inpatient (IN) ==
--- NOTE | 2018-03-20 15:41 | ED ---
HPI General Chief Complaint: Respiratory Symptoms Stated Complaint: Sore Throat/Clogged Ears/Dizzy Time Seen by Provider: 03/20/18 14:58 Source: patient Mode of arrival: ambulatory Limitations: no limitations History of Present Illness HPI Narrative: The patient is a 87-year-old male who presents to the emergency department via private vehicle for multiple symptoms. The patient states he developed sinus symptoms 2 weeks ago with nasal congestion, sensation of clogged ears, postnasal drip, and a fullness to the head region. The patient was seen by his primary physician and placed on Claritin-D, however, this did not resolve his symptoms. The patient then went to urgent care last Thursday and was diagnosed with sinusitis and placed on Augmentin. However, the patient states he has persistent symptoms. The patient states he is lightheaded and dizzy when he goes from a sitting to standing position that is worse with exertion. He also notes mild exertional shortness of breath, however , states that is been chronic. The patient also complains of decreased appetite , persistent nausea, and a weight loss of 13 pounds in the last month. The patient states he weighed 137 at home 1 month ago and now weighs 124 pounds. 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 The patient denies any discoloration of his stools, black stools, or blood in the stools. Symptoms are moderate and progressive. The patient denies any chest pain or shortness of breath. The patient does state he takes Eliquis, prescribed by Dr. Baxter his director of accounts receivable, for history of peripheral vascular disease. He denies any known history of PE, DVT, or atrial fibrillation. MD complaint: Reports lightheadedness and difficulty walking Onset (ago): week(s) Timing: gradual onset Description: Reports lightheadedness and difficulty walking History of similar episodes: No History of trauma: No Severity: moderate Relieving factors: rest Exacerbating factors: exertion Associated symptoms: Reports other Related Data Home Medications Medication Instructions Recorded Confirmed amoxicillin-pot clavulanate 1 tab PO BID 03/20/18 03/20/18 [Augmentin] apixaban [Eliquis] 1 tab PO BID 03/20/18 03/20/18 aspirin 1 tab PO DAILY 03/20/18 03/20/18 atorvastatin 1 tab PO DAILY 03/20/18 03/20/18 celecoxib 1 tab PO BID PRN 03/20/18 03/20/18 furosemide [Lasix] 1 tab PO DAILY 03/20/18 03/20/18 sacubitril-valsartan [Entresto] 1 tab PO DAILY 03/20/18 03/20/18 sotalol 0.5 tab PO DAILY 03/20/18 03/20/18 Allergies Allergy/AdvReac Type Severity Reaction Status Date / Time No Known Allergies Allergy Verified 03/20/18 15:02 Review of Systems ROS: all other systems reviewed are negative [facility] Medical History Medical History Arthritis (Acute) Atrial fibrillation (Acute) Colon cancer (Acute) High cholesterol (Acute) Myocardial infarction (Acute) Penis cancer (Acute) CHF (congestive heart failure) (Acute) Surgical History Surgical History Hx of CABG (Acute) Social History Social History Substance History: No History of Abuse Second Hand Smoke Exposure: No Smoking Status: Never smoker How Often Do You Have a Drink Containing Alcohol: Never Recent Travel in [facility] within the Last 8 Weeks: No Recent Out of Country Travel within the Last 8 Weeks: No Immunization History Tetanus Immunization: Unsure Exam Narrative Exam Narrative: GENERAL: Awake, alert, pleasant 87-year-old male who appears his stated age and is in no acute respiratory distress. SKIN: Focused skin assessment warm/dry. Mild pallor to the palms. HEAD: Atraumatic. Normocephalic. EYES: Pupils equal and round. 3 mm bilateral and reactive. Small subconjunctival hemorrhage noted in the right lower conjunctival. Patient does have pallor to the lower lid conjunctival bilaterally. ENT: No nasal bleeding or discharge. Mucous membranes pink and moist. Patient has no visible ulcerations or petechiae within the intraoral area after dentures were removed. NECK: Trachea midline. No JVD. CARDIOVASCULAR: Regular rate and rhythm. No murmur appreciated. RESPIRATORY: No accessory muscle use. Clear to auscultation. Breath sounds equal bilaterally. GASTROINTESTINAL: Abdomen soft, non-tender, nondistended. MUSCULOSKELETAL: No obvious deformities. No clubbing. No cyanosis. No edema. Capillary refill is less than 2 seconds. NEUROLOGICAL: Awake and alert. No obvious cranial nerve deficits. Motor grossly within normal limits. Normal speech. PSYCHIATRIC: Appropriate mood and affect; insight and judgment normal. Course Initial Documented Vital Signs Temperature 97.1 F L 03/20/18 14:59 Pulse Rate 57 L 03/20/18 14:59 Respiratory Rate 20 03/20/18 14:59 Blood Pressure 122/57 L 03/20/18 14:59 Pulse Oximetry 95 03/20/18 14:59 Last Documented Vital Signs Temperature 97.1 F L 03/20/18 14:59 Pulse Rate 59 L 03/20/18 17:08 Respiratory Rate 18 03/20/18 16:16 Blood Pressure 116/65 03/20/18 17:08 Pulse Oximetry 98 03/20/18 16:16 Medical Decision Making MDM Narrative Medical decision making narrative: IV was established, labs are drawn and sent, and the patient was placed on cardiac telemetry monitoring and continuous pulse oximetry monitoring. EKG was ordered and interpreted. Orthostatic vital signs were obtained. CT of the head and sinuses was obtained. CBC and type and screen were sent to lab. The patient's orthostatic vital signs revealed a blood pressure supine of 101/50 with a heart rate of 57, sitting upright the blood pressure dropped to 86/47 with a heart rate of 56, standing was a blood pressure 55/38 with a heart rate of 63. The patient had positive orthostatics, therefore, was administered 1 L of IV fluids. The patient's BUN and creatinine are elevated, GFR is less than 15, patient has acute renal failure, possibly from dehydration. Hemoglobin is normal, may be normal secondary to hemoconcentration. The patient does take Lasix, has had poor oral intake, may be multifactorial because of acute renal failure. The patient did have significant orthostatic hypotension, most likely related to dehydration, therefore, will be admitted. The patient's primary physician is Dr. Quiles, therefore, the on-call medical service was paged for admission. Medical Screen Exam Complete: Yes Emergency Medical Condition: Yes Differential Diagnosis Differential Diagnosis: Differential diagnosis includes orthostatic hypotension , dehydration, acute kidney injury, sinusitis, postnasal drip, cancer, hyponatremia, symptomatic anemia. Lab Data Lab results reviewed: Yes I reviewed the patient's lab results. Lab results narrative: BUN is 69 and creatinine is 3.90, consistent with acute renal failure. Previous creatinines have been within normal limits. Result diagrams: 03/20/18 15:10 03/20/18 15:10 Lab Results 03/20/18 03/20/18 03/20/18 Range/Units 15:10 15:10 15:10 CBC w Diff Auto diff final WBC 10.7 (4.0-11.0) th/mm3 RBC 4.93 (4.50-5.90) mil/mm3 Hgb 14.8 (13.0-17.0) gm/dL Hct 46.7 (39.0-51.0) % MCV 94.7 (80.0-100.0) fL MCH 30.0 (27.0-34.0) pg MCHC 31.7 L (32.0-36.0) % RDW 15.0 (11.6-17.2) % Plt Count 223 (150-450) th/mm3 MPV 11.3 H (7.0-11.0) fL Neut % (Auto) 72.2 H (16.0-70.0) % Lymph % (Auto) 13.8 (9.0-44.0) % [place] % (Auto) 7.5 (0.0-8.0) % Eos % (Auto) 5.4 H (0.0-4.0) % Baso % (Auto) 1.1 (0.0-2.0) % Neut # (Auto) 7.7 (1.8-7.7) th/mm3 Lymph # (Auto) 1.5 (1.0-4.8) th/mm3 [place] # (Auto) 0.8 (0.0-0.9) th/mm3 Eos # (Auto) 0.6 H (0.0-0.4) th/mm3 Baso # (Auto) 0.1 (0.0-0.2) th/mm3 WBC Differential . Differential Comment . PT 10.7 (9.8-11.6) sec INR 1.1 Ratio Sodium 137 (136-145) meq/L Potassium 4.6 (3.5-5.1) meq/L Chloride 100 (98-107) meq/L Carbon Dioxide 26.3 (21.0-32.0) meq/L Anion Gap 11 (5-15) meq/L BUN 69 H (7-18) mg/dL Creatinine 3.90 H (0.60-1.30) mg/dL Estimated GFR 15 L (>89) mL/min Random Glucose 119 H (74-106) mg/dL Lactic Acid (0.4-2.0) mmol/L Calcium 8.6 (8.5-10.1) mg/dL Total Bilirubin 0.6 (0.2-1.0) mg/dL AST 25 (15-37) U/L ALT 11 L (12-78) U/L Alkaline Phosphatase 102 (45-117) U/L Troponin I Less than 0.02 L (0.02-0.05) ng/mL Total Protein 7.0 (6.4-8.2) g/dL Albumin 3.2 L (3.4-5.0) g/dL 03/20/18 Range/Units 15:10 CBC w Diff WBC (4.0-11.0) th/mm3 RBC (4.50-5.90) mil/mm3 Hgb (13.0-17.0) gm/dL Hct (39.0-51.0) % MCV (80.0-100.0) fL MCH (27.0-34.0) pg MCHC (32.0-36.0) % RDW (11.6-17.2) % Plt Count (150-450) th/mm3 MPV (7.0-11.0) fL Neut % (Auto) (16.0-70.0) % Lymph % (Auto) (9.0-44.0) % [place] % (Auto) (0.0-8.0) % Eos % (Auto) (0.0-4.0) % Baso % (Auto) (0.0-2.0) % Neut # (Auto) (1.8-7.7) th/mm3 Lymph # (Auto) (1.0-4.8) th/mm3 [place] # (Auto) (0.0-0.9) th/mm3 Eos # (Auto) (0.0-0.4) th/mm3 Baso # (Auto) (0.0-0.2) th/mm3 WBC Differential Differential Comment PT (9.8-11.6) sec INR Ratio Sodium (136-145) meq/L Potassium (3.5-5.1) meq/L Chloride (98-107) meq/L Carbon Dioxide (21.0-32.0) meq/L Anion Gap (5-15) meq/L BUN (7-18) mg/dL Creatinine (0.60-1.30) mg/dL Estimated GFR (>89) mL/min Random Glucose (74-106) mg/dL Lactic Acid 2.2 H (0.4-2.0) mmol/L Calcium (8.5-10.1) mg/dL Total Bilirubin (0.2-1.0) mg/dL AST (15-37) U/L ALT (12-78) U/L Alkaline Phosphatase (45-117) U/L Troponin I (0.02-0.05) ng/mL Total Protein (6.4-8.2) g/dL Albumin (3.4-5.0) g/dL Imaging Data Radiologist's impression: Chest X-Ray 03/20/18 15:31 CONCLUSION: 1. Cardiomegaly. 2. Left basilar atelectasis. 3. Elevation of the left hemidiaphragm. Head CT 03/20/18 15:31 CONCLUSION: 1. Senescent changes without acute intracranial abnormality. . Sinuses CT 03/20/18 15:31 CONCLUSION: 1. No paranasal sinus congestion. 2. Small solitary mucus retention cyst involving an ethmoid air cell. Discharge Plan Discharge Disposition Patient Disposition: 30 Still Patient Discharge Condition Condition: Stable Discharge Details Diagnosis: Acute renal failure, Acute dehydration, Orthostatic hypotension Physicians Team ED Provider: Lauri Johnson Primary Care Provider: Primary Care Rukhsana Porras Attending Provider: Johnny Kaiser Status ED Status: Admitted Patient
--- NOTE | 2018-03-20 15:51 | XR ---
EXAM DATE: 03/20/2018 3:47 PM EST AGE/SEX: 87 years / Male INDICATIONS: Short of breath. CLINICAL DATA: This is the patient's initial encounter. Patient reports that signs and symptoms have been present for 1 day and indicates a pain score of 0/10. MEDICAL/SURGICAL HISTORY: Carcinoma, colon. Colon resection. CABG. COMPARISON: [facility], CHEST SINGLE AP, 06/08/2017. . FINDINGS: Median sternotomy wires are noted status post cardiac surgery. There is elevation of the left hemidia phragm. The heart is mildly prominent. Left basilar atelectasis is noted. CONCLUSION: 1. Cardiomegaly. 2. Left basilar atelectasis. 3. Elevation of the left hemidiaphragm. Electronically signed by: Johnny Jean MD 03/20/2018 3:49 PM EST
[2018-03-20 15:57] LABS: Baso # (Auto) 0.1 th/mm3 (0.0-0.2); Baso % (Auto) 1.1 % (0.0-2.0); Eos # (Auto) 0.6 th/mm3 (0.0-0.4); Eos % (Auto) 5.4 % (0.0-4.0); Hematocrit 46.7 % (39.0-51.0); Hemoglobin 14.8 gm/dL (13.0-17.0); Lymph # (Auto) 1.5 th/mm3 (1.0-4.8); Lymph % (Auto) 13.8 % (9.0-44.0); Mean Corpuscular HGB Conc 31.7 % (32.0-36.0); Mean Corpuscular Volume 94.7 fL (80.0-100.0); Mean Platelet Volume 11.3 fL (7.0-11.0); Mono # (Auto) 0.8 th/mm3 (0.0-0.9); Mono % (Auto) 7.5 % (0.0-8.0); Neut # (Auto) 7.7 th/mm3 (1.8-7.7); Neut % (Auto) 72.2 % (16.0-70.0); Platelet Count 223 th/mm3 (150-450); Red Blood Count 4.93 mil/mm3 (4.50-5.90); White Blood Count 10.7 th/mm3 (4.0-11.0)
[2018-03-20] MEDS: Sod Chloride 0.9% Inj 1,000 ML IV.CONT SCH ×2 (15:57→19:30)
[2018-03-20 16:14] LABS: Chloride 100 meq/L (98-107); Sodium 137 meq/L (136-145)
[2018-03-20] MEDS ORDERED: Sod Chloride 0.9% Inj 1,000 ML IV.SIG SCH (16:15)
[2018-03-20 16:16] LABS: Calcium 8.6 mg/dL (8.5-10.1)
[2018-03-20 16:17] LABS: Albumin 3.2 g/dL (3.4-5.0); Anion Gap 11 meq/L (5-15); Blood Urea Nitrogen 69 mg/dL (7-18); Carbon Dioxide 26.3 meq/L (21.0-32.0); Glucose,Random 119 mg/dL (74-106); Potassium 4.6 meq/L (3.5-5.1)
[2018-03-20 16:18] LABS: INR 1.1 Ratio; Prothrombin Time 10.7 sec (9.8-11.6)
[2018-03-20 16:20] LABS: Alanine Aminotransferase 11 U/L (12-78); Aspartate Aminotransferase 25 U/L (15-37); Glomerular Filtration Rate 15 mL/min (>89)
[2018-03-20 16:23] LABS: Alkaline Phosphatase 102 U/L (45-117)
--- NOTE | 2018-03-20 16:32 | CT ---
EXAM DATE: 03/20/2018 4:25 PM EST AGE/SEX: 87 years / Male INDICATIONS: Dizziness CLINICAL DATA: This is the patient's initial encounter. Patient reports that signs and symptoms have been present for 3 weeks and indicates a pain score of 0/10. MEDICAL/SURGICAL HISTORY: Congestive heart failure. Carcinoma, colon. Myocardial infarction. CABG . RADIATION DOSE: 52.05 CTDI (mGy) COMPARISON: [facility], CT SINUS W/O CONTRAST, 03/20/2018. . TECHNIQUE: CT of the head without contrast. Using automated exposure control and adjustment of the mA and/or kV according to patient size, radiation dose was kept as low as reasonably achievable to ob tain optimal diagnostic quality images. DICOM format image data is available electronically for revi ew and comparison. FINDINGS: Cerebrum: Moderate diffuse cerebral atrophy. The ventricles are normal for degree of atrophy. Mild-t o-moderate periventricular white matter hypodensities. No evidence of midline shift, mass lesion, hem orrhage or acute infarction. No extraaxial fluid collections are seen. Posterior Fossa: The cerebellum and brainstem are intact. The 4th ventricle is midline. The cerebe llopontine angle is unremarkable. Extracranial: The visualized portion of the orbits is intact. Skull: The calvaria is intact. No evidence of skull fracture. CONCLUSION: 1. Senescent changes without acute intracranial abnormality. . Electronically signed by: Lux Enamorado MD 03/20/2018 4:30 PM EST
--- NOTE | 2018-03-20 16:39 | CT ---
EXAM DATE: 03/20/2018 4:28 PM EST AGE/SEX: 87 years / Male INDICATIONS: Sinus Congestion CLINICAL DATA: This is the patient's initial encounter. Patient reports that signs and symptoms have been present for 3 weeks and indicates a pain score of 0/10. MEDICAL/SURGICAL HISTORY: Congestive heart failure. Carcinoma, colon. Myocardial infarction. CABG . RADIATION DOSE: 25.51 CTDI (mGy) COMPARISON: [facility], CT HEAD W/O CONTRAST, 03/20/2018. . TECHNIQUE: Contiguous axial thin-section CT images of the paranasal sinuses were performed. Using au tomated exposure control and adjustment of the mA and/or kV according to patient size, radiation dose was kept as low as reasonably achievable to obtain optimal diagnostic quality images. DICOM format image data is available electronically for review and comparison. FINDINGS: Frontal Sinuses: No evidence of mucoperiosteal thickening or air-fluid level. Nasal Cavity: The septum anteriorly is deviated towards the patient's right. The turbinates are int act. Olfactory Recesses: Symmetric and normal depth. Maxillary Sinuses: No evidence of mucoperiosteal thickening or air-fluid level. Outflow Tract: The ostiomeatal outflow tracts are symmetric and patent. Ethmoid Sinuses: A solitary ethmoid air cell is completely opacified essentially in the midline. No bony destruction or air-fluid level.. Sphenoid Sinuses: No evidence of mucoperiosteal thickening or air-fluid level. Other: The nasofrontal ducts are patent. The sphenoethmoidal recesses are patent. CONCLUSION: 1. No paranasal sinus congestion. 2. Small solitary mucus retention cyst involving an ethmoid air cell. Electronically signed by: Trev Beauchamp MD 03/20/2018 4:38 PM EST
[2018-03-20] MEDS ORDERED: Bisacodyl 10 MG Supp RECTAL PRN (16:57)
--- NOTE | 2018-03-20 17:32 | P.HP ---
History of Present Illness Primary Care Physician: No Primary Care Physician Chief Complaint: Dizziness History of Present Illness: This is a very pleasant 87-year-old male with a known medical history of CAD with [place] and cardiac stent placement, CHF, hyperlipidemia, history of colon cancer and penile cancer presented to the ED with multiple complaints. Patient states that he has had nasal/sinus congestion over the past 2 weeks, he admits to sensation of clogged ears as well as postnasal drip and phlegm in the back of his throat. He denies any cough, fevers, chills, headache, chest pain, abdominal pain, nausea, vomiting, diarrhea or dysuria. He does state that he visited his primary care doctor and he had ordered Claritin-D as well as Flonase which did not resolve his symptoms. Patient did also go to the urgent care last week and was given Augmentin for sinusitis, despite finishing this antibiotic his symptoms persisted which led to his presentation to the ED. He does admit that he has been feeling intermittently dizzy especially when he gets up too quickly. He denies any blurry vision, lightheadedness or actual falling. He does state that he has not been eating or drinking due to poor appetite. He does admit to a roughly 12 pound weight loss in the past 2 weeks. Patient lives at home with his daughter. At baseline he is able to care for self and still actually drives. Patient does have a history of CAD with cardiac stent placement, follows with Dr. Baxter, last seen 3 weeks ago with no changes to his medications. 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 Denies any history of PE, DVT or atrial fibrillation. It should be noted that patient has a history of colon cancer, 2014 status post colon resection, last colonoscopy was roughly 4 years ago which was reportedly unremarkable. Denies any recent black or bloody stools. Denies any history of kidney disease. 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 - Diagnosis (1) Acute renal failure (2) Acute dehydration (3) Orthostatic hypotension Inpatient Certification: I certify that the inpatient services were ordered in accordance with Medicare regulations governing the order. This includes certification that hospital inpatient services are reasonable and necessary and in the case of services not specified as inpatient-only under 42 CFR 419.22(n), that they are appropriately provided as inpatient services in accordance to with the 2-midnight benchmark under 43 CFR 412.3(e) Estimated Total Length of Stay (Days): 3 Plans for Post Hospital Care: Not yet determined Review of Systems All other systems reviewed negative except as stated in HPI PMFSH - History History Provided By: Patient - Medical History Medical History: Medical History (Last Reviewed 03/20/18 @ 17:32 by Marlene Rivero) Arthritis Colon cancer High cholesterol Myocardial infarction Penis cancer CHF (congestive heart failure) - Surgical History Surgical History: Surgical History (Last Reviewed 03/20/18 @ 17:32 by Marlene Rivero) Hx of CABG - Family History Family History: Family History (Last Updated 03/20/18 @ 17:33 by Marlene Rivero) Other Family history non-contributory - Social History I have reviewed the patient's Social History: Yes - Tobacco History Second Hand Smoke Exposure: No Tobacco Use In Past 30 Days: No Smoking Status: Never smoker - Alcohol History How Often Do You Have a Drink Containing Alcohol: Never - Substance Use History Substance History: No History of Abuse - Travel History Recent Travel in the [place] Within the Last 8 Weeks: No Recent Travel Out of the Country Within the Last 8 Weeks: No - Immunization History Tetanus Immunization: Unsure Medications and Allergies Active Medications: Active Medications Acetaminophen (Tylenol) 650 mg PO Q4H PRN PRN Reason: Temp > 100.4 Al Hydroxide/Mg Hydroxide (Milk Of Magnesia Liq) 30 ml PO Q12H PRN PRN Reason: Mild Constipation Bisacodyl (Dulcolax Supp) 10 mg RECTAL DAILY PRN PRN Reason: SEVERE CONSITIPATION Sodium Chloride (Ns Inj) 1,000 mls @ 100 mls/hr IV.CONT .Q10H [facility] Last Admin: 03/20/18 15:57 Dose: 100 mls/hr Lactulose (Lactulose Liq) 30 ml PO DAILY PRN PRN Reason: SEVERE CONSITIPATION Nystatin (Mycostatin Liq) 5 ml SWISH-SWAL QID [facility] Ondansetron HCl (Zofran Inj) 4 mg IV.PUSH Q6H PRN PRN Reason: NAUSEA OR VOMITING Sennosides (Senokot) 17.2 mg PO Q12H PRN PRN Reason: Moderate Constipation Sodium Chloride (Ns Flush) 2 ml IV.FLUSH PRN PRN PRN Reason: FLUSH AFTER USING IV ACCESS Sodium Chloride (Ns Flush) 2 ml IV.FLUSH BID MOO Sodium Chloride (Ns Flush) 2 ml IV.FLUSH PRN PRN PRN Reason: FLUSH AFTER USING IV ACCESS Allergies Allergy/AdvReac Type Severity Reaction Status Date / Time No Known Allergies Allergy Verified 03/20/18 15:02 Home Medications Medication Instructions Recorded Confirmed Type amoxicillin-pot clavulanate 1 tab PO BID 03/20/18 03/20/18 History [Augmentin] apixaban [Eliquis] 1 tab PO BID 03/20/18 03/20/18 History aspirin 1 tab PO DAILY 03/20/18 03/20/18 History atorvastatin 1 tab PO DAILY 03/20/18 03/20/18 History celecoxib 1 tab PO BID PRN 03/20/18 03/20/18 History furosemide [Lasix] 1 tab PO DAILY 03/20/18 03/20/18 History sacubitril-valsartan [Entresto] 1 tab PO DAILY 03/20/18 03/20/18 History sotalol 0.5 tab PO DAILY 03/20/18 03/20/18 History Exam Vital signs: Vital Signs 03/20/18 14:59 03/20/18 16:15 03/20/18 16:16 Temperature 97.1 F L Pulse Rate 57 L 57 L 57 L Respiratory Rate 20 18 Blood Pressure 122/57 L 89/46 L Pulse Oximetry 95 98 03/20/18 17:08 Temperature Pulse Rate 59 L Respiratory Rate Blood Pressure 116/65 Pulse Oximetry Intake & Output 03/19/18 03/20/18 03/20/18 18:59 06:59 18:59 Weight 60.2 kg Narrative: GENERAL: Well-developed, well-nourished elderly male patient in [facility]. SKIN: Warm and dry. No rash. HEAD: Normocephalic. Atraumatic. EYES: Pupils equal and round. No scleral icterus. Right eye, subconjunctival hemorrhage. Pallor. ENT: No nasal bleeding or discharge. Mucous membranes pink and moist. NECK: Supple. Trachea midline. CARDIOVASCULAR: Regular rate and rhythm. S1, S2 noted. RESPIRATORY: No accessory muscle use. Clear to auscultation. Breath sounds equal bilaterally. GASTROINTESTINAL: Abdomen soft, non-tender, nondistended. Normoactive bowel sounds x4. MUSCULOSKELETAL: No obvious deformities. Extremities without clubbing, cyanosis , or edema. NEUROLOGICAL: Awake and alert. No obvious cranial nerve deficits. Motor grossly within normal limits. 5/5 muscle strength in bilateral upper and lower extremities. Normal speech. PSYCHIATRIC: Appropriate mood and affect; insight and judgment normal. Results - Labs CBC & Chem 7: 03/20/18 15:10 03/20/18 15:10 Labs: Laboratory Results - last 24 hr 03/20/18 03/20/18 03/20/18 15:10 15:10 15:10 CBC w Diff Auto diff final WBC 10.7 RBC 4.93 Hgb 14.8 Hct 46.7 MCV 94.7 MCH 30.0 MCHC 31.7 L RDW 15.0 Plt Count 223 MPV 11.3 H Neut % (Auto) 72.2 H Lymph % (Auto) 13.8 [place] % (Auto) 7.5 Eos % (Auto) 5.4 H Baso % (Auto) 1.1 Neut # (Auto) 7.7 Lymph # (Auto) 1.5 [place] # (Auto) 0.8 Eos # (Auto) 0.6 H Baso # (Auto) 0.1 WBC Differential . Differential Comment . PT 10.7 INR 1.1 Sodium 137 Potassium 4.6 Chloride 100 Carbon Dioxide 26.3 Anion Gap 11 BUN 69 H Creatinine 3.90 H Estimated GFR 15 L Random Glucose 119 H Lactic Acid Calcium 8.6 Total Bilirubin 0.6 AST 25 ALT 11 L Alkaline Phosphatase 102 Troponin I Less than 0.02 L Total Protein 7.0 Albumin 3.2 L 03/20/18 15:10 CBC w Diff WBC RBC Hgb Hct MCV MCH MCHC RDW Plt Count MPV Neut % (Auto) Lymph % (Auto) [place] % (Auto) Eos % (Auto) Baso % (Auto) Neut # (Auto) Lymph # (Auto) [place] # (Auto) Eos # (Auto) Baso # (Auto) WBC Differential Differential Comment PT INR Sodium Potassium Chloride Carbon Dioxide Anion Gap BUN Creatinine Estimated GFR Random Glucose Lactic Acid 2.2 H Calcium Total Bilirubin AST ALT Alkaline Phosphatase Troponin I Total Protein Albumin - Imaging Impressions Chest X-Ray 03/20/18 15:31 CONCLUSION: 1. Cardiomegaly. 2. Left basilar atelectasis. 3. Elevation of the left hemidiaphragm. Head CT 03/20/18 15:31 CONCLUSION: 1. Senescent changes without acute intracranial abnormality. . Sinuses CT 03/20/18 15:31 CONCLUSION: 1. No paranasal sinus congestion. 2. Small solitary mucus retention cyst involving an ethmoid air cell. Caprini VTE Risk Assessment Caprini VTE Risk Assessment: Moderate/High Risk (score >= 2) Caprini Risk Assessment Model: Point Value = 1 Point Value = 2 Point Value = 3 Point Value = 5 Age 41-60 Minor surgery BMI > 25 kg/m2 Swollen legs Varicose veins or History of unexplained or recurrent spontaneous Oral contraceptives or hormone replacement Sepsis (< 1 month) Serious lung disease, including pneumonia (< 1 month) Abnormal pulmonary function Acute myocardial infarction Congestive heart failure (< 1 month) History of inflammatory bowel disease Medical patient at bed rest Age 61-74 Arthroscopic surgery Major open surgery (> 45 min) Laparoscopic surgery (> 45 min) Malignancy Confined to bed (> 72 hours) Immobilizing plaster cast Central venous access Age >= 75 History of VTE Family history of VTE Factor V Leiden Prothrombin [id number] Lupus anticoagulant Anticardiolipin antibodies Elevated serum homocysteine Heparin-induced thrombocytopenia Other congenital or acquired thrombophilia Stroke (< 1 month) Elective arthroplasty Hip, pelvis, or leg fracture Acute spinal cord injury (< 1 month) Prophylaxis Regimen: Total Risk Factor Score Risk Level Prophylaxis Regimen 0-1 Low Early ambulation 2 Moderate Order ONE of the following: *Sequential Compression Device (SCD) *Heparin 5000 units SQ BID 3-4 Higher Order ONE of the following medications: *Heparin 5000 units SQ TID *Enoxaparin/Lovenox 40 mg SQ daily (WT < 150 kg, CrCl > 30 mL/min) *Enoxaparin/Lovenox 30 mg SQ daily (WT < 150 kg, CrCl > 10-29 mL/min) *Enoxaparin/Lovenox 30 mg SQ BID (WT < 150 kg, CrCl > 30 mL/min) AND/OR *Sequential Compression Device (SCD) 5 or more Highest Order ONE of the following medications: *Heparin 5000 units SQ TID (Preferred with Epidurals) *Enoxaparin/Lovenox 40 mg SQ daily (WT < 150 kg, CrCl > 30 mL/min) *Enoxaparin/Lovenox 30 mg SQ daily (WT < 150 kg, CrCl > 10-29 mL/min) *Enoxaparin/Lovenox 30 mg SQ BID (WT < 150 kg, CrCl > 30 mL/min) AND *Sequential Compression Device (SCD) Assessment and Plan - Assessment (1) Acute renal failure Code(s): N17.9 - Acute kidney failure, unspecified Status: Acute (2) Acute dehydration Code(s): E86.0 - Dehydration Status: Acute (3) Orthostatic hypotension Code(s): I95.1 - Orthostatic hypotension Status: Acute - Plan This is an 87-year-old male patient presented to the ED with: Acute kidney injury suspect secondary to dehydration Orthostatic hypotension with associated dizziness -Patient complains of dizziness. Does take Lasix at home. Also admits to poor appetite and poor oral fluid intake. Significantly positive orthostatic hypotension in ED. -Head CT negative any acute abnormality. -Will check stool for occult blood, he may be hemoconcentrated, possible anemia etiology for dizziness. Check labs in a.m. -CBC is unremarkable. BMP showing creatinine 3.9. GFR 15. -1 liter NS bolus in ED. Will continue IV fluid. Monitor for overload. Gently hydrate. -KIMANI hose ordered. PT evaluation ordered, recommendations pending. High fall risk. Close monitoring. -Will check echocardiogram. Follow. Sinusitis -Patient has been treated outpatient with Claritin-D and Augmentin without resolution of his symptoms. -Sinus CT reviewed showing no acute intracranial abnormality. -Will add Flonase. Oral thrush -Recent antibiotic use. -Start on nystatin swish and swallow. 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 History of colon cancer Last colonoscopy 4 years ago. Will check Hemoccult, may be a secondary cause of dizziness. DVT prophylaxis: SCDs. Hold chemical prophylaxis for now, monitor H&H, possible bleeding. He is usually on Eliquis. (1) Acute renal failure Qualifiers: Acute renal failure type: unspecified Qualified Code(s): N17.9 - Acute kidney failure, unspecified
[2018-03-20] MEDS: Nystatin Liq 500,000 UNIT/5 ML UDC SWISH-SWAL SCH ×2 (19:31→21:00)
[2018-03-20 23:46] LABS: Bilirubin,Urine Negative (Negative); Clarity,Urine Clear (Clear); Color,Urine Yellow (Yellw/Straw); Glucose,Urine (UA) Negative (Negative); Leukocyte Esterase,Urine Negative (Negative); Nitrite,Urine Negative (Negative); PH,Urine 5.5 (5.0-8.5); Urobilinogen,Urine 0.2 mg/dL (Less than 2)
[2018-03-21 00:18] LABS: WBC,Urine 0-5 /hpf (0-5)
[2018-03-21] MEDS: Sod Chloride 0.9% Inj 1,000 ML IV.CONT SCH ×4 (05:15→21:42)
[2018-03-21 06:17] LABS: Baso % (Auto) 0.5 % (0.0-2.0); Eos # (Auto) 0.4 th/mm3 (0.0-0.4); Eos % (Auto) 4.7 % (0.0-4.0); Hematocrit 38.2 % (39.0-51.0); Hemoglobin 12.5 gm/dL (13.0-17.0); Lymph # (Auto) 1.1 th/mm3 (1.0-4.8); Lymph % (Auto) 11.6 % (9.0-44.0); Mean Corpuscular HGB Conc 32.7 % (32.0-36.0); Mean Corpuscular Volume 94.6 fL (80.0-100.0); Mean Platelet Volume 9.2 fL (7.0-11.0); Mono # (Auto) 0.7 th/mm3 (0.0-0.9); Mono % (Auto) 7.8 % (0.0-8.0); Neut # (Auto) 7.2 th/mm3 (1.8-7.7); Neut % (Auto) 75.4 % (16.0-70.0); Platelet Count 131 th/mm3 (150-450); Red Blood Count 4.03 mil/mm3 (4.50-5.90); Red Cell Distribution Width 14.8 % (11.6-17.2); White Blood Count 9.4 th/mm3 (4.0-11.0)
[2018-03-21 07:06] LABS: Carbon Dioxide 27.4 meq/L (21.0-32.0); Potassium 4.5 meq/L (3.5-5.1)
[2018-03-21] MEDS: Nystatin Liq 500,000 UNIT/5 ML UDC SWISH-SWAL SCH ×4 (09:26→20:05)
--- NOTE | 2018-03-21 10:36 | P.PNIM ---
Subjective Interval history: Follow up UTI and NADIA. Patient seen and examined, lying in bed comfortably in [facility]. States he did not sleep well. No pain. Urinating well, denies any dysuria. Afebrile overnight. VSS. Eating well without any nausea or vomiting. Labs improved today. ECHO done and EF 45-50%. Physical Exam Vital signs: Vital Signs 03/20/18 14:59 03/20/18 16:15 03/20/18 16:16 Temperature 97.1 F L Pulse Rate 57 L 57 L 57 L Respiratory Rate 20 18 Blood Pressure 122/57 L 89/46 L Pulse Oximetry 95 98 03/20/18 17:08 03/20/18 18:09 03/20/18 20:00 Temperature 97.6 F Pulse Rate 59 L 59 L 62 Respiratory Rate 16 Blood Pressure 116/65 100/53 L 110/57 L Pulse Oximetry 96 03/21/18 00:00 03/21/18 04:00 03/21/18 08:00 Temperature 97.5 F L 97.5 F L 97.7 F Pulse Rate 58 L 60 58 L Respiratory Rate 23 27 H 26 H Blood Pressure 99/54 L 99/50 L 140/69 Pulse Oximetry 94 L 95 96 Intake & Output 03/20/18 03/21/18 03/21/18 18:59 06:59 18:59 Intake Total 1000 / 1000 1986 200 / 200 Output Total 401 / 401 Balance 1000 / 1000 1586 / 1586 200 / 200 Weight 59.6 kg 59.6 kg Intake: IV 1000 / 1000 1866 / 1866 200 / 200 NS Inj 1,000 ML @ 84 mls/hr IV. 1866 200 / 200 CONT .[id number] [facility] Rx#: [id number] Oral 120 / 120 Output: Urine 400 / 400 Stool Other: Date of Last Bowel Movement 03/18/18 03/21/18 03/21/18 Weight On Admission 59.6 kg Narrative: GENERAL: Well-developed, well-nourished elderly male patient in [facility]. SKIN: Warm and dry. No rash. HEAD: Normocephalic. Atraumatic. EYES: Pupils equal and round. No scleral icterus. Right eye, subconjunctival hemorrhage improving. Pallor. ENT: No nasal bleeding or discharge. Mucous membranes pink and moist. NECK: Supple. Trachea midline. CARDIOVASCULAR: Regular rate and rhythm. S1, S2 noted. RESPIRATORY: No accessory muscle use. Clear to auscultation. Breath sounds equal bilaterally. GASTROINTESTINAL: Abdomen soft, non-tender, nondistended. Normoactive bowel sounds x4. MUSCULOSKELETAL: No obvious deformities. Extremities without clubbing, cyanosis , or edema. NEUROLOGICAL: Awake and alert. No obvious cranial nerve deficits. Motor grossly within normal limits. 5/5 muscle strength in bilateral upper and lower extremities. Normal speech. PSYCHIATRIC: Appropriate mood and affect; insight and judgment normal. Results - Labs CBC & Chem 7: 03/21/18 06:03 03/21/18 06:03 Laboratory Results - last 24 hr 03/20/18 03/20/18 03/20/18 15:10 15:10 15:10 CBC w Diff Auto diff final WBC 10.7 RBC 4.93 Hgb 14.8 Hct 46.7 MCV 94.7 MCH 30.0 MCHC 31.7 L RDW 15.0 Plt Count 223 MPV 11.3 H Neut % (Auto) 72.2 H Lymph % (Auto) 13.8 [place] % (Auto) 7.5 Eos % (Auto) 5.4 H Baso % (Auto) 1.1 Neut # (Auto) 7.7 Lymph # (Auto) 1.5 [place] # (Auto) 0.8 Eos # (Auto) 0.6 H Baso # (Auto) 0.1 WBC Differential . Differential Comment . PT 10.7 INR 1.1 Sodium 137 Potassium 4.6 Chloride 100 Carbon Dioxide 26.3 Anion Gap 11 BUN 69 H Creatinine 3.90 H Estimated GFR 15 L Random Glucose 119 H Lactic Acid Calcium 8.6 Total Bilirubin 0.6 AST 25 ALT 11 L Alkaline Phosphatase 102 Troponin I Less than 0.02 L Total Protein 7.0 Albumin 3.2 L Urine Color Urine Clarity Urine pH Ur Specific [place] Urine Protein Urine Glucose (UA) Urine Ketones Urine Occult Blood Urine Nitrate Urine Bilirubin Urine Urobilinogen Ur Leukocyte Esterase Urine WBC Micro UA Comment Ur Microscopic Review Urine Culture Comments Blood Type Blood Type Recheck Antibody Screen 03/20/18 03/20/18 03/20/18 15:10 15:43 23:10 CBC w Diff WBC RBC Hgb Hct MCV MCH MCHC RDW Plt Count MPV Neut % (Auto) Lymph % (Auto) [place] % (Auto) Eos % (Auto) Baso % (Auto) Neut # (Auto) Lymph # (Auto) [place] # (Auto) Eos # (Auto) Baso # (Auto) WBC Differential Differential Comment PT INR Sodium Potassium Chloride Carbon Dioxide Anion Gap BUN Creatinine Estimated GFR Random Glucose Lactic Acid 2.2 H Calcium Total Bilirubin AST ALT Alkaline Phosphatase Troponin I Total Protein Albumin Urine Color Yellow Urine Clarity Clear Urine pH 5.5 Ur Specific [place] 1.020 Urine Protein Negative Urine Glucose (UA) Negative Urine Ketones Negative Urine Occult Blood Negative Urine Nitrate Negative Urine Bilirubin Negative Urine Urobilinogen 0.2 Ur Leukocyte Esterase Negative Urine WBC 0-5 Micro UA Comment Culture not ind Ur Microscopic Review Microscopic reviewed Urine Culture Comments Culture not ind Blood Type O Positive Blood Type Recheck Required Antibody Screen Negative 03/21/18 03/21/18 06:03 06:03 CBC w Diff Auto diff final WBC 9.4 RBC 4.03 L Hgb 12.5 L D Hct 38.2 L MCV 94.6 MCH 31.0 MCHC 32.7 RDW 14.8 Plt Count 131 L D MPV 9.2 Neut % (Auto) 75.4 H Lymph % (Auto) 11.6 [place] % (Auto) 7.8 Eos % (Auto) 4.7 H Baso % (Auto) 0.5 Neut # (Auto) 7.2 Lymph # (Auto) 1.1 [place] # (Auto) 0.7 Eos # (Auto) 0.4 Baso # (Auto) 0.0 WBC Differential . Differential Comment . PT INR Sodium 144 Potassium 4.5 Chloride 109 H D Carbon Dioxide 27.4 Anion Gap 8 BUN 56 H Creatinine 2.60 H Estimated GFR 23 L Random Glucose 82 Lactic Acid Calcium 8.0 L Total Bilirubin AST ALT Alkaline Phosphatase Troponin I Total Protein Albumin Urine Color Urine Clarity Urine pH Ur Specific [place] Urine Protein Urine Glucose (UA) Urine Ketones Urine Occult Blood Urine Nitrate Urine Bilirubin Urine Urobilinogen Ur Leukocyte Esterase Urine WBC Micro UA Comment Ur Microscopic Review Urine Culture Comments Blood Type Blood Type Recheck Antibody Screen - Imaging Impressions Chest X-Ray 03/20/18 15:31 CONCLUSION: 1. Cardiomegaly. 2. Left basilar atelectasis. 3. Elevation of the left hemidiaphragm. Head CT 03/20/18 15:31 CONCLUSION: 1. Senescent changes without acute intracranial abnormality. . Sinuses CT 03/20/18 15:31 CONCLUSION: 1. No paranasal sinus congestion. 2. Small solitary mucus retention cyst involving an ethmoid air cell. Assessment and Plan - Assessment (1) Acute renal failure Code(s): N17.9 - Acute kidney failure, unspecified Status: Acute (2) Acute dehydration Code(s): E86.0 - Dehydration Status: Acute (3) Orthostatic hypotension Code(s): I95.1 - Orthostatic hypotension Status: Acute - Plan This is an 87-year-old male patient presented to the ED with: Acute kidney injury suspect secondary to dehydration, improving Orthostatic hypotension with associated dizziness suspect secondary to above. -Patient complains of dizziness. Does take Lasix at home. Also admits to poor appetite and poor oral fluid intake. Significantly positive orthostatic hypotension in ED. -Head CT negative any acute abnormality. -Will check stool for occult blood, he may be hemoconcentrated, possible anemia etiology for dizziness. H&H dropped could be dilutional. Will continue to monitor. Check occult stool. -CBC is unremarkable. BMP showing creatinine 3.9. GFR 15 initially. Improving today. -1 liter NS bolus in ED. Will continue IV fluid. Monitor for overload. Gently hydrate. -KIMANI hose ordered. PT evaluation ordered, recommendations pending. High fall risk. Close monitoring. -ECHO is showing mildly reduced systolic function EF 45-50%. -Continue on manager cardiac cath. Monitor for arrhythmias. Sinusitis -Patient has been treated outpatient with Claritin-D and Augmentin without resolution of his symptoms. Completed. -Sinus CT reviewed showing no acute intracranial abnormality. -Continue Flonase. Oral thrush, improving. -Recent antibiotic use. -Continue on nystatin swish and swallow. 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 History of colon cancer Last colonoscopy 4 years ago. -Will check Hemoccult, may be a secondary cause of dizziness. -Follow H&H. DVT prophylaxis: SCDs. Hold chemical prophylaxis for now, monitor H&H, possible bleeding. He is usually on Eliquis. (1) Acute renal failure Qualifiers: Acute renal failure type: unspecified Qualified Code(s): N17.9 - Acute kidney failure, unspecified
--- NOTE | 2018-03-21 11:21 | ECHRPT ---
Indication: HEART FAILURE CONCLUSIONS The left ventricular systolic function is mildly reduced with an estimated ejection fraction in the range of 45- 50%. Wall thickness is normal. No regional wall motion abnormalities are present. The mitral valve is not well visualized. Aortic valve sclerosis is present. Trace aortic valve regurgitation. The tricuspid valve is not well visualized. BP: / HR: Rhythm: Sinus MEASUREMENTS (Male / Female) Normal Values Technical Quality:Very technically difficult study 2D ECHO LV Ejection Fraction MOD 4C 54.1 % LV Ejection Fraction 4C AL 54.2 % DOPPLER AV Peak Velocity 99.1 cm/s AV Peak Gradient 3.9 mmHg AI Peak Velocity 312.0 cm/s AI Peak Gradient 38.9 mmHg AI Pressure Half Time 563.0 ms LVOT Peak Velocity 70.6 cm/s LVOT Peak Gradient 2.0 mmHg MV Area PHT 2.6 cm Mitral E Point Velocity 68.1 cm/s Mitral A Point Velocity 118.0 cm/s Mitral E to A Ratio 0.6 LV E' Lateral Velocity 3.4 cm/s Mitral E to LV E' Lateral Ratio 20.0 LV E' Septal Velocity 5.0 cm/s Mitral E to LV E' Septal Ratio 13.7 FINDINGS LEFT VENTRICLE The left ventricular systolic function is mildly reduced with an estimated ejection fraction in the range of 45- 50%. Wall thickness is normal. No regional wall motion abnormalities are present. MITRAL VALVE The mitral valve is not well visualized. AORTIC VALVE Trileaflet aortic valve. Aortic valve sclerosis is present. Trace aortic valve regurgitation. TRICUSPID VALVE The tricuspid valve is not well visualized. Karlo Mena MD, FACC, [facility] [place] (Electronically Signed) Final Date:21 March 2018 11:20
--- NOTE | 2018-03-21 14:45 | P.DIET ---
Nutritional Evaluation Type of nutrition evaluation: initial Nutrition screening: Weight Loss > 10 lbs Subjective Barriers to Nutrition: Swallowing problem Subjective Comments: Pt reports a 13lb wt loss over the past month r/t a poor appetite with difficulty swallowing. Objective - Diagnosis Acute Renal Failure, Dehydration, orthostatic hypotension - Objective % IBW: 101 (IBW: 59.1kg) Body Weight Used for Calculations: Actual (59.6kg) Energy Needs - Lower Range (kCal/kg): 28 Energy Needs - Upper Range (kCal/kg): 33 Lower Limit kCal/kg (kCals): 1,669 Upper Limit kCal/kg (kCals): 1,967 Lower Limit Protein Factor (Grams per Kg): 1 Upper Limit Protein Factor (Grams per Kg): 1.3 Lower Protein Needs (Protein): 60 Upper Protein Needs (Protein): 77 Fluid Factor (ml/kg): 28 Estimated Fluid Needs (ml): 1,669 Dietitian Reviewed in Medical Record: Current diet, Curent medications, Intake & Output, Labs, Medical history Diet Order: Cardiac Oral Diet Intake Amount: Fair 50-75% Objective Comments: PMH: CAD with [place] and cardiac stent placement, CHF, hyperlipidemia, history of colon cancer and penile cancer Labs noted: Cr 2.60 Assessment Assessment: Patient at nutritional risk r/t dx and recent reported wt loss due to difficulty swallowing. Pt's nutritional needs as assessed above. Pt's po intake has been 50-75% since admission. Adequate PO intake has not yet been established. Will provide pt with Ensure bid, each bottle contains 250kcals and 9gms protein. Will monitor PO intake. Recommendations: Cardiac diet Will add Ensure bid Monitor PO intake for adequacy.
[2018-03-21] MEDS: Acetaminophen 325 MG Tablet PO PRN (18:03)
[2018-03-22] MEDS: Sod Chloride 0.9% Inj 1,000 ML IV.CONT SCH (05:35)
[2018-03-22 06:09] LABS: Baso # (Auto) 0.1 th/mm3 (0.0-0.2); Baso % (Auto) 0.6 % (0.0-2.0); Eos # (Auto) 0.4 th/mm3 (0.0-0.4); Eos % (Auto) 4.7 % (0.0-4.0); Hemoglobin 12.4 gm/dL (13.0-17.0); Lymph # (Auto) 1.1 th/mm3 (1.0-4.8); Lymph % (Auto) 12.7 % (9.0-44.0); Mean Corpuscular HGB Conc 32.8 % (32.0-36.0); Mean Corpuscular Hemoglobin 31.2 pg (27.0-34.0); Mean Corpuscular Volume 95.3 fL (80.0-100.0); Mean Platelet Volume 9.8 fL (7.0-11.0); Mono # (Auto) 0.8 th/mm3 (0.0-0.9); Mono % (Auto) 9.3 % (0.0-8.0); Neut # (Auto) 6.1 th/mm3 (1.8-7.7); Neut % (Auto) 72.7 % (16.0-70.0); Platelet Count 137 th/mm3 (150-450); Red Blood Count 3.99 mil/mm3 (4.50-5.90); Red Cell Distribution Width 15.1 % (11.6-17.2); White Blood Count 8.5 th/mm3 (4.0-11.0)
[2018-03-22 06:23] LABS: Potassium 4.2 meq/L (3.5-5.1)
[2018-03-22 06:30] LABS: Calcium 8.1 mg/dL (8.5-10.1)
[2018-03-22 06:31] LABS: Carbon Dioxide 27.6 meq/L (21.0-32.0)
[2018-03-22] MEDS: Acetaminophen 325 MG Tablet PO PRN (07:48)
--- NOTE | 2018-03-22 09:10 | P.PNIM ---
Subjective Interval history: Follow up NADIA and dehydration. Patient seen and examined, lying in bed comfortably no apparent distress. He is much improved. Has been urinating well overnight. Creatinine proved significantly. Patient has close follow-up with Dr. Dillard as well as his primary care doctor, as he is urinating well with good intake as far as eating and drinking, patient will be sent home safely to follow-up with his primary care doctor. I have ordered for a repeat BMP on . Patient is understanding and will obtain his lab work. Records will be sent to his primary care physician. Physical Exam Vital signs: Vital Signs 03/21/18 12:00 03/21/18 16:00 03/21/18 18:40 Temperature 97.9 F 97.8 F Pulse Rate 64 72 Respiratory Rate 24 21 15 Blood Pressure 112/58 L 101/58 L Pulse Oximetry 96 97 03/21/18 20:00 03/22/18 00:00 Temperature 96.0 F L 96.0 F L Pulse Rate 69 69 Respiratory Rate 20 20 Blood Pressure 130/58 L 117/58 L Pulse Oximetry 94 L 95 Intake & Output 03/21/18 03/22/18 03/22/18 18:59 06:59 18:59 Intake Total 1920 / 1920 1000 / 1000 Output Total 900 / 900 1200 / 1200 Balance 1020 / 1020 -200 / -200 Weight 60.1 kg Intake: IV 1200 / 1200 1000 / 1000 NS Inj 1,000 ML @ 100 mls/hr IV 1200 / 1200 1000 / 1000 .CONT .Q10H [facility] Rx#:[id number] Oral 720 / 720 Output: Urine 900 / 900 1200 / 1200 Other: Date of Last Bowel Movement 03/21/18 03/21/18 # Bowel Movements 2 Narrative: GENERAL: Well-developed, well-nourished elderly male patient in [facility]. SKIN: Warm and dry. No rash. HEAD: Normocephalic. Atraumatic. EYES: Pupils equal and round. No scleral icterus. Right eye, subconjunctival hemorrhage improving. Pallor. ENT: No nasal bleeding or discharge. Mucous membranes pink and moist. NECK: Supple. Trachea midline. CARDIOVASCULAR: Regular rate and rhythm. S1, S2 noted. RESPIRATORY: No accessory muscle use. Clear to auscultation. Breath sounds equal bilaterally. GASTROINTESTINAL: Abdomen soft, non-tender, nondistended. Normoactive bowel sounds x4. MUSCULOSKELETAL: No obvious deformities. Extremities without clubbing, cyanosis , or edema. NEUROLOGICAL: Awake and alert. No obvious cranial nerve deficits. Motor grossly within normal limits. 5/5 muscle strength in bilateral upper and lower extremities. Normal speech. PSYCHIATRIC: Appropriate mood and affect; insight and judgment normal. Results - Labs CBC & Chem 7: 03/22/18 05:10 03/22/18 05:10 Laboratory Results - last 24 hr 03/21/18 03/22/18 03/22/18 20:22 05:10 05:10 CBC w Diff Auto diff final WBC 8.5 RBC 3.99 L Hgb 12.4 L Hct 38.0 L MCV 95.3 MCH 31.2 MCHC 32.8 RDW 15.1 Plt Count 137 L MPV 9.8 Neut % (Auto) 72.7 H Lymph % (Auto) 12.7 [place]mer[place]da % (Auto) 9.3 H Eos % (Auto) 4.7 H Baso % (Auto) 0.6 Neut # (Auto) 6.1 Lymph # (Auto) 1.1 [place]mer[place] # (Auto) 0.8 Eos # (Auto) 0.4 Baso # (Auto) 0.1 WBC Differential . Differential Comment . Sodium 145 Potassium 4.2 Chloride 111 H Carbon Dioxide 27.6 Anion Gap 6 BUN 40 H Creatinine 1.60 H Estimated GFR 41 L Random Glucose 75 Lactic Acid 1.2 Calcium 8.1 L Microbiology 03/21/18 09:30 Stool Stool Occult Blood (BONNIE) - Final Hemoccult negative Assessment and Plan - Assessment (1) Acute renal failure Code(s): N17.9 - Acute kidney failure, unspecified Status: Acute (2) Acute dehydration Code(s): E86.0 - Dehydration Status: Acute (3) Orthostatic hypotension Code(s): I95.1 - Orthostatic hypotension Status: Acute - Plan This is an 87-year-old male patient presented to the ED with: Acute kidney injury suspect secondary to dehydration, improving Orthostatic hypotension with associated dizziness suspect secondary to above. -Patient complains of dizziness. Does take Lasix at home. Also admits to poor appetite and poor oral fluid intake. Significantly positive orthostatic hypotension in ED. -Head CT negative any acute abnormality. -Will check stool for occult blood, he may be hemoconcentrated, possible anemia etiology for dizziness. H&H dropped could be dilutional. Will continue to monitor. Check occult stool. -CBC is unremarkable. BMP showing creatinine 3.9. GFR 15 initially. Improving today. -1 liter NS bolus in ED. Will continue IV fluid. Monitor for overload. Gently hydrate. -KIMANI hose ordered. PT evaluation ordered, recommendations pending. High fall risk. Close monitoring. -ECHO is showing mildly reduced systolic function EF 45-50%. -Continue on cardiac care nurse. Monitor for arrhythmias. Sinusitis -Patient has been treated outpatient with Claritin-D and Augmentin without resolution of his symptoms. Completed. -Sinus CT reviewed showing no acute intracranial abnormality. -Continue Flonase. Oral thrush, improving. -Recent antibiotic use. -Continue on nystatin swish and swallow. 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 History of colon cancer Last colonoscopy 4 years ago. -Will check Hemoccult, may be a secondary cause of dizziness. -Follow H&H. DVT prophylaxis: SCDs. Hold chemical prophylaxis for now, monitor H&H, possible bleeding. He is usually on Eliquis. (1) Acute renal failure Qualifiers: Acute renal failure type: unspecified Qualified Code(s): N17.9 - Acute kidney failure, unspecified
--- NOTE | 2018-03-22 09:34 | P.DS ---
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 Patient states that he has had nasal/sinus congestion over the past 2 weeks, he admits to sensation of clogged ears as well as postnasal drip and phlegm in the back of his throat. He denies any cough, fevers, chills, headache, chest pain, abdominal pain, nausea, vomiting, diarrhea or dysuria. He does state that he visited his primary care doctor and he had ordered Claritin-D as well as Flonase which did not resolve his symptoms. Patient did also go to the urgent care last week and was given Augmentin for sinusitis, despite finishing this antibiotic his symptoms persisted which led to his presentation to the ED. He does admit that he has been feeling intermittently dizzy especially when he gets up too quickly. He denies any blurry vision, lightheadedness or actual falling. He does state that he has not been eating or drinking due to poor appetite. He does admit to a roughly 12 pound weight loss in the past 2 weeks. Patient lives at home with his daughter. At baseline he is able to care for self and still actually drives. Patient does have a history of CAD with cardiac stent placement, follows with Dr. Baxter, last seen 3 weeks ago with no changes to his medications. 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 Denies any history of PE, DVT or atrial fibrillation. It should be noted that patient has a history of colon cancer, 2014 status post colon resection, last colonoscopy was roughly 4 years ago which was reportedly unremarkable. Denies any recent black or bloody stools. Denies any history of kidney disease. 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 Patient update on day of discharge: Follow up NADIA and dehydration. Patient seen and examined, lying in bed comfortably no apparent distress. He is much improved. Has been urinating well overnight. Creatinine proved significantly. Patient has close follow-up with Dr. Dillard as well as his primary care doctor, as he is urinating well with good intake as far as eating and drinking, patient will be sent home safely to follow-up with his primary care doctor. I have ordered for a repeat BMP on . Patient is understanding and will obtain his lab work. Records will be sent to his primary care physician. DS: Diagnosis - Discharge Diagnosis (1) Acute renal failure Status: Acute (2) Acute dehydration Status: Acute (3) Orthostatic hypotension Status: Acute DS: Summary Hospital Course: This is an 87-year-old male patient presented to the ED presented to the ED with complaints of dizziness. He admits to poor appetite and poor fluid intake , states that he might be dehydrated. He also had significant positive orthostatic hypotension when he presented which has resolved. He did also have acute kidney injury which was suspected secondary to dehydration. Patient has been hydrated with IV fluids, is eating and drinking well without any problems. Head CT on presentation was done which did not show any acute abnormality. It was a concern when he presented to the hospital that he may have been hemoconcentrated with possible anemia causing his dizziness, and occult stool was obtained which was negative, H&H was stable during hospitalization and there is no concern for bleeding at this time. His CBC is unremarkable. BMP on presentation did show a creatinine of 3.9/GFR 15, patient denies any history of kidney disease. This is likely secondary to the dehydration because patient did improve significantly with IV fluid. On day of discharge his creatinine was 1.6. He has close follow-up with his primary care physician, is agreeable to continue with good p.o. intake for the next 2 days, will obtain an outpatient BMP and follow with his primary care physician. Patient has an order for KIMANI hose at home to avoid any orthostatic hypotension. PT worked with patient during hospitalization patient did well without any orthostatic problems. An echocardiogram was also obtained and did show some mildly reduced systolic function with an EF of 45-50%. Patient follows closely with his relationship counselor, he is agreeable to follow with him outpatient he has an appointment this month. I have decreased his home Lasix from 40 mg PO to 20 mg PO. Patient was recently diagnosed with sinusitis and was treated outpatient with Claritin-D and Augmentin. Symptoms have resolved. Sinus CT was done showing no acute intracranial abnormality. Recommended that patient continue Flonase. He did present with some oral thrush, was given nystatin swish and swallow which has improved his symptoms. This will be discontinued upon discharge. Patient has a history of hyperlipidemia, hypertension and CAD, these are all stable and will be discharged home to follow-up with cardiology. Patient also history of colon cancer, his last colonoscopy was 4 years ago which was reportedly unremarkable. Hemoccult stool was negative for any blood. H&H was stable. This is stable and patient will follow-up as needed. Patient stable at this time. Rx is written. Diet as tolerated. Activity as tolerated. - Time Spent with Patient Total time spent providing and/or coordinating discharge services: Greater than 30 minutes - Quality: VTE Deep Vein Thrombosis/Pulmonary Embolism Present on Admission: Yes Exam Vital signs: Vital Signs 03/21/18 12:00 03/21/18 16:00 03/21/18 18:40 Temperature 97.9 F 97.8 F Pulse Rate 64 72 Respiratory Rate 24 21 15 Blood Pressure 112/58 L 101/58 L Pulse Oximetry 96 97 03/21/18 20:00 03/22/18 00:00 Temperature 96.0 F L 96.0 F L Pulse Rate 69 69 Respiratory Rate 20 20 Blood Pressure 130/58 L 117/58 L Pulse Oximetry 94 L 95 Intake & Output 03/21/18 03/22/18 03/22/18 18:59 06:59 18:59 Intake Total 1920 / 1920 1000 / 1000 Output Total 900 / 900 1200 / 1200 Balance 1020 / 1020 -200 / -200 Weight 60.1 kg Intake: IV 1200 / 1200 1000 / 1000 NS Inj 1,000 ML @ 100 mls/hr IV 1200 / 1200 1000 / 1000 .CONT .Q10H [facility] Rx#:[id number] Oral 720 / 720 Output: Urine 900 / 900 1200 / 1200 Other: Date of Last Bowel Movement 03/21/18 03/21/18 # Bowel Movements 2 Narrative: GENERAL: Well-developed, well-nourished patient in [facility]. SKIN: Warm and dry. No rash. HEAD: Normocephalic. Atraumatic. EYES: Pupils equal and round. No scleral icterus. No injection or drainage. ENT: No nasal bleeding or discharge. Mucous membranes pink and moist. NECK: Supple. Trachea midline. CARDIOVASCULAR: Regular rate and rhythm. S1, S2 noted. No murmur appreciated. RESPIRATORY: No accessory muscle use. Clear to auscultation. Breath sounds equal bilaterally. GASTROINTESTINAL: Abdomen soft, non-tender, nondistended. Normoactive bowel sounds x4. MUSCULOSKELETAL: No obvious deformities. Extremities without clubbing, cyanosis , or edema. NEUROLOGICAL: Awake and alert. No obvious cranial nerve deficits. Motor grossly within normal limits. 5/5 muscle strength in bilateral upper and lower extremities. Normal speech. PSYCHIATRIC: Appropriate mood and affect; insight and judgment normal. Results Procedures completed during hospitalization: See above. Labs on day of discharge: Labs from last 24 hours 03/22/18 03/22/18 03/21/18 05:10 05:10 20:22 CBC w Diff Auto diff final WBC 8.5 RBC 3.99 L Hgb 12.4 L Hct 38.0 L MCV 95.3 MCH 31.2 MCHC 32.8 RDW 15.1 Plt Count 137 L MPV 9.8 Neut % (Auto) 72.7 H Lymph % (Auto) 12.7 [place] % (Auto) 9.3 H Eos % (Auto) 4.7 H Baso % (Auto) 0.6 Neut # (Auto) 6.1 Lymph # (Auto) 1.1 [place] # (Auto) 0.8 Eos # (Auto) 0.4 Baso # (Auto) 0.1 WBC Differential . Differential Comment . Sodium 145 Potassium 4.2 Chloride 111 H Carbon Dioxide 27.6 Anion Gap 6 BUN 40 H Creatinine 1.60 H Estimated GFR 41 L Random Glucose 75 Lactic Acid 1.2 Calcium 8.1 L - Impressions ITS Impressions Chest X-Ray 03/20/18 15:31 CONCLUSION: 1. Cardiomegaly. 2. Left basilar atelectasis. 3. Elevation of the left hemidiaphragm. Head CT 03/20/18 15:31 CONCLUSION: 1. Senescent changes without acute intracranial abnormality. . Sinuses CT 03/20/18 15:31 CONCLUSION: 1. No paranasal sinus congestion. 2. Small solitary mucus retention cyst involving an ethmoid air cell. Discharge Plan - Discharge Disposition Patient Disposition: Discharge Home - Discharge Condition Condition: Stable - Discharge Order Discharge Orders: Discharge Order (Routine); Ordered 03/22/18 Ordered By: Marlene Rivero - Discharge Details Anticipated Discharge Date: 03/22/18 - Physicians Team Primary Care Provider: Primary Care Chiquita,Rukhsana Attending Provider: Johnny Kaiser
[2018-03-22] MEDS: Nystatin Liq 500,000 UNIT/5 ML UDC SWISH-SWAL SCH (10:23)
== END 2018-03-22 11:00 | disposition home or self-care (01) ==
LOC: PHED 14:54 → PHEDA 16:53 → PHICU 18:33 → PH3 03-21 19:51
PROVIDERS: ADMIT Internal Medicine; ATTEND Internal Medicine